=== PATIENT | female | born 1955 | race African-American/Black ===

== ENCOUNTER 2019-04-04 10:17 | Inpatient (IN) | payer SELFPAY ==
[2019-04-04 11:01] LABS: #Eosinphils 0.2 thou/uL (0.0-0.7); #Lymphocytes 2.2 thou/uL (1.20-3.40); #Monocytes 0.6 thou/uL (0.11-0.59); #Neutrophils 5.6 thou/uL (1.40-6.50); %Basophils 0.3 % (0.0-1.0); %Eosinophils 2.2 % (0.0-10.0); %Lymphocytes 26.2 % (21.0-51.0); %Monocytes 6.6 % (0.0-10.0); %Neutrophils 64.8 % (42.0-75.0); Mean Corpuscular HGB CONC 33.2 g/dL (32.0-36.0); Mean Corpuscular Hemoglobin 29.2 pg (27.0-31.0); Mean Platelet Volume 9.6 fL (7.4-10.4); Platelet Count 195 thou/uL (130-400); RBC Distribution Width 13.9 % (11.5-14.5); Red Blood Cell (RBC) Count 4.46 mill/uL (4.20-5.40); White Blood Cell (WBC) Count 8.6 thou/uL (4.8-10.8)
--- NOTE | 2019-04-04 11:05 | RAD ---
Portable frontal chest radiograph: 04/04/2019 COMPARISON: None HISTORY: Hypertension FINDINGS: There is prominence of the aortic arch and mild pulmonary vascular congestion with no pneum othorax, pleural fluid, focal consolidation, or alveolar edema. IMPRESSION: No focal consolidation or alveolar edema.
[2019-04-04 11:19] LABS: ALT (SGPT) 21 U/L (8-55); AST (SGOT) 25 U/L (5-34); Alkaline Phosphatase 118 U/L (40-150); Anion Gap 14 mmol/L (10-20); BUN (Urea Nitrogen) 20 mg/dL (9.8-20.1); Bilirubin, Total 0.9 mg/dL (0.2-1.2); CK (CPK) 68 U/L (29-168); Calc. Creatinine Clearance 0 mL/min (70-130); Calcium 9.6 mg/dL (7.8-10.44); Carbon Dioxide 25 mmol/L (23-31); Chloride 100 mmol/L (98-107); Estimated GFR-MDRD 42; Globulin 3.1 g/dL (2.4-3.5); Glucose 116 mg/dL (80-115); Potassium 3.7 mmol/L (3.5-5.1); Protein, Total 7.1 g/dL (6.0-8.3); Sodium 135 mmol/L (136-145)
[2019-04-04 11:40] LABS: CKMB 2.6 ng/mL (0-6.6)
[2019-04-04] MEDS ORDERED: Labetalol HCl 100 MG/20 ML VIAL ONE (11:51)
--- NOTE | 2019-04-04 11:52 | CT ---
Exam: Brain CT without IV contrast: HISTORY: Weakness, fall, injury, malaise FINDINGS: No focal mass or midline shift. No intra or extra-axial hemorrhage. 0.9 cm diameter low-attenuation f ocus in the right basal ganglia possibly a focal area of chronic white matter ischemic changes versus subacute lacunar infarct. There are some patchy centrum semiovale and periventricular lucencie s favored to be chronic white matter ischemic change. Right maxillary sinus mucosal disease with air-fluid level evidence for sinusitis. IMPRESSION: No mass or acute hemorrhage. Evidence for bilateral chronic white matter ischemic changes. 0.9 cm low-attenuation focus in the right basal ganglia possibly subacute infarct versus chronic whit e matter ischemic focal disease. Right maxillary sinus mucosal disease and air-fluid level.
--- NOTE | 2019-04-04 12:01 | CT ---
EXAM: Abdomen and pelvic CT scan with contrast: HISTORY: Weakness, fall, malaise COMPARISON: None FINDINGS: The visualized lung bases are clear. Liver: 0.8 cm diameter low attenuation density in the right lobe of the liver, not definitively colton cterize, possibly a cyst or other low attenuation nonenhancing mass. Gallbladder:Unremarkable. Pancreas:Unremarkable Spleen:Unremarkable. Adrenal glands:Unremarkable. Kidneys:No renal calculus or acute obstruction.Evidence for small right renal cortical cyst. No evidence for bowel obstruction. No CT evidence for acute appendicitis. There is a very huge multi lobulated pelvic mass extending well into the abdomen the overall size of which measures approximately 12 x 25 x 23 cm containing multiple focal areas of dystrophic type calcification. I feel that this is a huge fibroid uterus. There is in addition, a fairly densely calc ified mass extending cranially in the left lateral abdomen up into the left upper quadrant. This mass measures approximately 8.8 by 14 cm and probably represents a very large densely calcified subse carmella fibroid. No abscess, adenopathy, or abnormal fluid collection within the abdomen or pelvis. IMPRESSION: Huge multilobulated pelvic mass with dystrophic calcifications evidence for very extensive uterine fi broids. Given huge size of these, the possibility of associated malignant transformation cannot be totally excluded. No evidence for ascites or overt adenopathy. Small low-attenuation indeterminant density in the right lobe of the liver.
[2019-04-04] MEDS ORDERED: ISOVUE-370 76%-LOCM 1 ML ONE (13:02)
--- NOTE | 2019-04-04 13:31 | PDOC.FPRHP ---
- History of Present Illness Chief Complaint: Dizziness, Nausea History of Present Illness: Pt is 63 yo F with history of fibroids who presents with elevated blood pressure , nausea, and dizziness of 2 days. She moved here 2 weeks ago from [place]. She has been staying with son. Yesterday, she started having dizziness and had a fall and hit her head. They checked her BP and it was 203/159. They thought it might be an error, but this today she was still experiencing dizziness, so they rechecked her BP and it was 285/159. Her son and grandson checked it on themselves and found their bp to be normal, so they decided to bring her to the ED. the She also had some difficulty walking and slurred speech. She said she has also been experiencing some fatigue and nausea and has not been eating well the past 2 days. ED Course: In the ED, she received 20 mg IV Labetolol x2. BP was initial 230/120. Her Creatinine was elevated at 1.28. CT Head: Negative. CT Abdomen: Huge multilobulated pelvic mass with dystrophic calcifications evidence for very extensive uterine fibroids. Small density in the right lobe of the liver. - Allergies/Adverse Reactions Allergies Allergy/AdvReac Type Severity Reaction Status Date / Time No Known Allergies Allergy Verified 04/04/19 15:46 - History PMHx: Fibroids PSHx: None FHx: HTN- GM, Mom, Brother, and Sister Social: No smoking, drinking, recreational drugs. - Review of Systems General: reports: fatigue. denies: fever/chills Eyes: denies: vision changes ENT: denies: nasal congestion Respiratory: reports: shortness of breath. denies: cough Cardiovascular: reports: edema. denies: chest pain Gastrointestinal: reports: nausea. denies: vomiting, diarrhea, constipation, abdominal pain Genitourinary: denies: dysuria Skin: denies: rashes Musculoskeletal: denies: pain Neurological: reports: weakness. denies: numbness - Vital signs BP: 233/131 HR: 92 RR: 16 Tmax: 98 Pox: 98% on RA Wt: 76.7 - Physical Exam Constitutional: NAD, awake, alert and oriented HEENT: normocephalic and atraumatic, PERRLA, MMM, oropharynx clear Neck: supple, no LAD Chest: no-tender to palpation Heart: RRR, normal S1/S2, no murmurs/rubs/gallops, pulses present, no edema Lungs: CTAB Abdomen: bowel sounds present -Abdomen: Significant mass in abdomen. Musculoskeletal: normal structure, ROM grossly normal Neurological: no focal deficit, CN II-XII intact Skin: no rash/lesions Heme/Lymphatic: no unusual bruising or bleeding, no LAD Psychiatric: normal mood and affect FMR H&P: Results - Labs Result Diagrams: 04/04/19 10:47 04/04/19 10:47 Lab results: WBC 8.6 thou/uL (4.8-10.8) 04/04/19 10:47 Hgb 13.0 g/dL (12.0-16.0) 04/04/19 10:47 Hct 39.3 % (36.0-47.0) 04/04/19 10:47 MCV 88.0 fL (78.0-98.0) 04/04/19 10:47 Plt Count 195 thou/uL (130-400) 04/04/19 10:47 Neutrophils % 64.8 % (42.0-75.0) 04/04/19 10:47 Sodium 135 mmol/L (136-145) L 04/04/19 10:47 Potassium 3.7 mmol/L (3.5-5.1) 04/04/19 10:47 Chloride 100 mmol/L (98-107) 04/04/19 10:47 Carbon Dioxide 25 mmol/L (23-31) 04/04/19 10:47 BUN 20 mg/dL (9.8-20.1) 04/04/19 10:47 Creatinine 1.28 mg/dL (0.6-1.1) H 04/04/19 10:47 Glucose 116 mg/dL (80-115) H 04/04/19 10:47 Calcium 9.6 mg/dL (7.8-10.44) 04/04/19 10:47 Total Bilirubin 0.9 mg/dL (0.2-1.2) 04/04/19 10:47 AST 25 U/L (5-34) 04/04/19 10:47 ALT 21 U/L (8-55) 04/04/19 10:47 Alkaline Phosphatase 118 U/L (40-150) 04/04/19 10:47 Creatine Kinase 68 U/L (29-168) 04/04/19 10:47 CK-MB (CK-2) 2.6 ng/mL (0-6.6) 04/04/19 10:47 Serum Total Protein 7.1 g/dL (6.0-8.3) 04/04/19 10:47 Albumin 4.0 g/dL (3.4-4.8) 04/04/19 10:47 FMR H&P: A/P - Problem List (1) Hypertensive emergency Current Visit: Yes Status: Acute Code(s): I16.1 - HYPERTENSIVE EMERGENCY (2) Fibroids Current Visit: Yes Status: Acute Code(s): D21.9 - BENIGN NEOPLASM OF CONNECTIVE AND OTHER SOFT TISSUE, UNSP - Plan Pt is 63 yo F with history of fibroids who presents with elevated blood pressure , nausea, and dizziness of 2 days. 1. HTN Urgency BP: 233/131 - CT Head: Neg - ED: Labetalol - HCTZ and Amlodipine -Trop: 0.041, will continue to trend - 1 time dose of Hydralazine given earlier 2. Fibroids CT Abd: Huge multilobulated pelvic mass with dystrophic calcifications evidence for very extensive uterine fibroids. Small density in the right lobe of the liver. - Oupt f/u needed - Consider JEWEL BEARING TURNER consult 3. Elevated Cre: CKD vs DAIN Cre: 1.28 - Most likely due to HTN Urgency - UA ordered - Will monitor Diet: HHLSo DVT Prophylaxis: Lovenox GI Prophylaxis: Pepcid Code Status: Full City Call Dispo: Inpt, blood pressure management and resolution of DAIN/CKD. FMR H&P: Upper Level - Plan Date/Time: 04/04/19 1331 Miguelito Lee DO, have evaluated this patient and agree with findings/plan as outlined by auditor internal resident. Pertinent changes/additions are listed here. Subjective: This is a 63 yo female with no recent medical treatment or evaluation who presents today with a 2 week history of nausea, dizziness, fatigue, and lack of appetite. She is presenting to the ER today because she had an elevated BP of 280s/130s taken at home. She reports checking her BP because of the symptoms above. She also reports knowing that she had a fibroid but not really knowing the significant. She denies any symptoms regarding this. Objective: Vitals BP: 233/121, HR 70, RR 16, SpO2 98% RA, General: NAD HEENT: MMM, NC/AT Cardio: RRR, no murmur Lungs: CTAB Abdomen: Large mass consistent with CT, no ttp Extremities: no swelling Neuro: No deficits or weakness appreciated A/P Hypertensive urgency -Admit to tele -amlodipine and HCTZ, will titrate -Hydralazine PRN -Will monitor for signs of hypertensive emergency DAIN vs CKD, no prior studies -Likely 2/2 elevated BP, will trend with AM BMP Elevated troponin -Trending down, likely from demand Large abdominal mass, thought to be a fibroid -Pt will need inpt vs outpt NYLON WINDER evaluation
[2019-04-04] MEDS ORDERED: Nitroglycerin 2% Ointment 1 INCH/1 GM Packet ONE (13:48)
[2019-04-04] MEDS ORDERED: hydrALAZINE 20 MG/ML VIAL ONE (13:48)
[2019-04-04] MEDS ORDERED: Aspirin Chewable 81 MG TAB ONE (14:17)
[2019-04-04] MEDS ORDERED: Ondansetron PF 4 MG/2 ML Vial IVP PRN (14:41)
[2019-04-04] MEDS ORDERED: Ondansetron ODT 4 MG TAB SL PRN (14:41)
[2019-04-04] MEDS ORDERED: Acetaminophen 325 MG TAB PO PRN (14:41)
[2019-04-04] MEDS ORDERED: hydrALAZINE 20 MG/ML VIAL SLOW IVP SCH (15:30)
[2019-04-04] MEDS ORDERED: Senokot S 8.6-50 MG TAB PO PRN (15:55)
--- NOTE | 2019-04-04 16:46 | HP ---
I have examined the patient and I have discussed the case with Dr. Pablo Padron. HISTORY OF PRESENT ILLNESS: Tiff Officer is a very pleasant 63-year-old black female, who presented to the emergency room early this afternoon. Her friend and caregiver states that she noticed this morning that the patient was complaining of a dull headache and felt "dizzy." She took her blood pressure recorded, it is very high, and brought her to the ER. She states that her friend at all times could move all extremities. She never complained of chest pain or shortness of breath. She was always alert, oriented, and do not demonstrate any evidence of an encephalopathy. As stated above, her only symptom was a slight feeling of dizziness and fatigue. In the ER, she was noted to have a systolic of about 260/130 and was brought in and given some labetalol. By the time I saw the patient, her blood pressure was 220/120. PHYSICAL EXAMINATION: GENERAL: When I examined the patient, she was quietly sitting in bed. She was completely alert, oriented x3, and in absolutely no distress. EAR, NOSE, AND THROAT: No erythema or exudate. NECK: Supple. CARDIAC: Heart rhythm is regular. S4 gallop. No murmur or rub noted. LUNGS: Clear, but diminished. No rales, rhonchi, or wheezes. No distress. ABDOMEN: There is a very large mass in the abdominal region around the umbilicus and distal to the umbilicus, consistent with fibroids of which the patient has a history. EXTREMITIES: The patient moves all extremities with no difficulty. NEUROLOGIC: No focal deficits. DIAGNOSTIC STUDIES: EKG, no acute ischemic changes. Head CT, negative. LABORATORY DATA: Labs are pending. ASSESSMENT: Hypertensive urgency. PLAN: Admit. Aggressive p.o. medications and close followup in the clinic. Job ID: [id number]
[2019-04-04] MEDS ORDERED: Hydrochlorothiazide 25 MG TAB PO SCH ×2 (18:58→21:00)
[2019-04-04] MEDS ORDERED: hydrALAZINE 10 MG TAB PO SCH (21:30)
[2019-04-05] MEDS ORDERED: Labetalol HCl 100 MG/20 ML VIAL SLOW IVP SCH (02:45)
--- NOTE | 2019-04-05 05:48 | PDOC.FM ---
- Subjective Subjective: Patient is doing well this morning. She states that she still feels a little dizzy and unsteady. She denies any new symptoms. She stated that she thought her speech sounded slurred, but it is the same as yesterday. - Objective MAR Reviewed: Yes Vital Signs & Weight: Vital Signs (12 hours) Temp Pulse Resp BP BP Pulse Ox 04/05/19 03:38 76 209/91 H 04/05/19 03:20 98.1 F 77 20 231/109 H 96 04/04/19 23:20 98.1 F 75 16 195/93 H 97 04/04/19 22:18 71 201/98 H 04/04/19 20:15 93 L Weight Weight 68.266 kg I&O: 04/03/19 04/04/19 04/05/19 06:59 06:59 06:59 Intake Total 240 Balance 240 Result Diagrams: 04/05/19 05:07 04/05/19 05:07 Phys Exam - Physical Examination Constitutional: NAD HEENT: PERRLA, moist MMs, sclera anicteric Neck: supple, full ROM Respiratory: no wheezing, no rales, no rhonchi, clear to auscultation bilateral Cardiovascular: RRR, no significant murmur, no rub Gastrointestinal: soft, non-tender, positive bowel sounds large, firm mass palpable throughout abdomen. Musculoskeletal: no edema, pulses present Neurological: non-focal, normal sensation, moves all 4 limbs CN II-XII intact, 5/5 strength in upper and lower extremities, nl sensation Psychiatric: normal affect, A&O x 3 Skin: no rash, normal turgor Dx/Plan - Plan Plan: Pt is 63 yo F with history of fibroids who presents with elevated blood pressure , nausea, and dizziness of 2 days. HTN Urgency BP: 233/131 on presentation. Overnight 200/100s HCTZ 25BID and Amlodipine 5po, Labetolol 10 x 1 and Hydralazine 10po and 10IV. Will start Lisinopril 10 today. Trop: 0.041, will continue to trend Cr 1.28 > 1.[address] Abd: Huge multilobulated pelvic mass with dystrophic calcifications evidence for very extensive uterine fibroids. Small density in the right lobe of the liver. Oupt f/u needed, consider ADULT PSYCHIATRIST consult outpatient Elevated Cre: CKD vs DAIN Cre: 1.28 > 1.43 Will trend. Diet: HHLSo DVT: Lovenox GI Prophylaxis: Pepcid Code Status: Full Dispo: Stable, inpatient Addendum - Attending - Attending Attestation Date/Time: 04/05/19 2625 I personally evaluated the patient and discussed the management with Dr. Traylor. I agree with the History, Examination, Assessment and Plan documented above with any addition or exceptions noted below. Pt symptomatic with blood pressures in the 230's/110's. Will transfer to icu for cardene drip. She is complaining of dizziness, jaw pain. Trops are indeterminate. Will trend this. Pt's creatinine elevated, dain vs ckd. Getting urine studies. Will get MRI brain as well.
[2019-04-05 05:57] LABS: #Basophils 0.1 thou/uL (0.0-0.2); #Eosinphils 0.4 thou/uL (0.0-0.7); #Lymphocytes 2.2 thou/uL (1.20-3.40); #Monocytes 0.7 thou/uL (0.11-0.59); #Neutrophils 6.4 thou/uL (1.40-6.50); %Basophils 0.6 % (0.0-1.0); %Eosinophils 3.8 % (0.0-10.0); %Lymphocytes 22.4 % (21.0-51.0); %Monocytes 6.9 % (0.0-10.0); %Neutrophils 66.3 % (42.0-75.0); Hemoglobin 12.5 g/dL (12.0-16.0); Mean Corpuscular HGB CONC 33.5 g/dL (32.0-36.0); Mean Corpuscular Hemoglobin 29.6 pg (27.0-31.0); Mean Corpuscular Volume 88.3 fL (78.0-98.0); Mean Platelet Volume 9.5 fL (7.4-10.4); Platelet Count 196 thou/uL (130-400); RBC Distribution Width 13.9 % (11.5-14.5); Red Blood Cell (RBC) Count 4.22 mill/uL (4.20-5.40); White Blood Cell (WBC) Count 9.7 thou/uL (4.8-10.8)
[2019-04-05 06:16] LABS: Bacteria/HPF None Seen HPF (None Seen); Bilirubin Negative (Negative); Blood, Urine Negative (Negative); Clarity Clear (Clear); Glucose, Urine (Dipstick) Normal (Negative); Leukocyte 75 Leu/uL (Negative); Nitrite Negative (Negative); Protein, Urine (Dipstick) 100 mg/dL (Neg-Trace); RBC/HPF 0-3 HPF (0-3); Squamous Epithelial 0-3 HPF (0-3); Urobilinogen Normal mg/dL (Less than 2)
[2019-04-05 06:16] LABS: Anion Gap 14 mmol/L (10-20); BUN (Urea Nitrogen) 21 mg/dL (9.8-20.1); Calc. Creatinine Clearance 43 mL/min (70-130); Calcium 9.3 mg/dL (7.8-10.44); Carbon Dioxide 25 mmol/L (23-31); Chloride 100 mmol/L (98-107); Estimated GFR-MDRD 45; Glucose 103 mg/dL (80-115); Sodium 136 mmol/L (136-145)
[2019-04-05 06:24] LABS: Potassium 2.9 mmol/L (3.5-5.1)
[2019-04-05] MEDS ORDERED: Potassium Chloride 20 MEQ TAB PO SCH (07:00)
[2019-04-05] MEDS: Hydrochlorothiazide 25 MG TAB PO SCH ×2 (07:15→20:34)
[2019-04-05] MEDS: Lisinopril 10 MG TAB PO SCH (07:15)
[2019-04-05] MEDS: Amlodipine 10 MG TAB PO SCH (07:16)
[2019-04-05] MEDS: Famotidine 20 MG TAB PO SCH (07:16)
--- NOTE | 2019-04-05 08:40 | CON ---
DATE OF CONSULTATION: 04/04/2019 CHIEF COMPLAINT: Pelvic mass. HISTORY OF PRESENT ILLNESS: The patient is a 63-year-old female, presenting to the emergency room with dizziness and nausea and was noted to be in hypertensive emergency. The patient was admitted for treatment. The patient has history of uterine fibroid in the last 17 years. We were consulted for evaluation of this mass. By CT scan, the mass measured was multilobular and measured 25 degrees in its largest dimension. On evaluation of the patient, the patient reports that she has known about these fibroids for the last 17 years. She does not experience any pain or discomfort from them. The patient has not seen a provider in many, many years. The patient does report that she has applied for Medicare, which she becomes eligible for in a couple of months. We have recommended to Ms. Officer that prior to addressing these fibroids, which do need to be removed at the patient's earliest convenience, that the patient get her blood pressures under control as they are severely elevated. PAST MEDICAL HISTORY: Negative apart from uterine fibroids. PAST SURGICAL HISTORY: Negative. FAMILY HISTORY: Hypertension. SOCIAL HISTORY: Denies drug, alcohol, or tobacco use. REVIEW OF SYSTEMS: Reports fatigue and dizziness and weakness. Denies chest pain, abdominal pain, vaginal bleeding, urinary urgency, fecal incontinence, or other mass effect that she is aware of. She denies any numbness or localized weakness. PHYSICAL EXAMINATION: VITAL SIGNS: Around the time of our evaluation, blood pressure is 215/106, temperature 97.7, pulse is 71, respiratory rate is 16, and saturating 98% on room air. GENERAL: She appeared to be in no acute distress. She is alert and oriented, cooperative and pleasant to interact with. HEENT: Head is normocephalic, atraumatic. ABDOMEN: Protuberant. It is nontender to palpation. She has a firm irregularly shaped mass very palpable through the abdominal wall. DIAGNOSTIC DATA: CT scan of the abdomen and pelvis shows a multilobular pelvic mass with dystrophic calcifications. Evidence of extensive uterine fibroids. Given the size of these fibroids, Radiology cannot rule out any associated malignant transformation. ASSESSMENT AND PLAN: The patient is a 63-year-old female with known large uterine fibroids and a newly diagnosed of uncontrolled hypertension in a hypertensive emergency. The patient is being managed by Family Medicine for her blood pressure. Our recommendations at this time are to get her blood pressures under control, evaluate for any comorbidities associated with this likely longstanding condition. Once this is uncontrolled, it had been fully evaluated as necessary. The patient should follow up with [facility] for evaluation of these uterine fibroids in an outpatient setting. We will be sending a referral over, further documentation also will be including in her discharge paperwork instructions to follow up at [facility] once her blood pressures are under control. At this point, what seems to be the best scenario for her is to have evaluation for a planned surgery within her Medicare window to be able to provide much better financial support than she currently has. Obviously, if her symptoms were to acutely change and be uncontrollable, she would require a hysterectomy prior to that point. Job ID: [id number]
[2019-04-05] MEDS ORDERED: Amlodipine 5 MG TAB PO SCH (09:00)
[2019-04-05] MEDS ORDERED: Enoxaparin Sodium 40 MG/0.4 ML SYRINGE SC SCH (09:00)
[2019-04-05] MEDS: hydrALAZINE 20 MG/ML VIAL SLOW IVP PRN (09:06)
[2019-04-05 09:22] LABS: Creatinine, Urine 75.62 mg/dL (47-110)
[2019-04-05] MEDS: niCARdipine 25 MG in Sodium Chloride 0.9% 250 ML 250 ML IVPB SCH ×2 (10:40→14:20)
[2019-04-05 13:04] LABS: Troponin I 0.198 ng/mL (< 0.028)
--- NOTE | 2019-04-05 14:02 | CON ---
DATE OF CONSULTATION: 04/05/2019 CONSULTING PHYSICIAN: Family Medicine Residency Service. REASON FOR CONSULTATION: Hypertension out of control. HISTORY OF PRESENT ILLNESS: The patient is a 63-year-old Jose Miguel female, who came to the emergency room last night saying that she had tripped several times because she was dizzy. She was found to have a profoundly elevated blood pressure, which apparently could not be controlled with medications on the floor. She was subsequent transferred to the CCU for nicardipine drip. She is scheduled to have an MRI later today. Part of her workup consisted of CT of the abdomen, which showed a multilobulated pelvic mass thought secondary to extensive uterine fibroids. PAST MEDICAL HISTORY: Fibroids. PAST SURGICAL HISTORY: None. FAMILY MEDICAL HISTORY: Remarkable for hypertension. SOCIAL HISTORY: Nondrinker. Nonsmoker. Does not use illicit drugs. ALLERGIES: NONE. MEDICATIONS: Prior to admission, none. REVIEW OF SYSTEMS: Twelve-point review of systems negative except for the dizziness. PHYSICAL EXAMINATION: VITAL SIGNS: Temperature 98.1; pulse 83; and blood pressure 168/82, currently on a nicardipine drip at 7.5 mg/hour. GENERAL: She is awake, alert, in no distress. HEENT: Pupils react. Sclerae are anicteric. Oropharynx clear. NECK: No adenopathy or JVD. LUNGS: Clear to auscultation without wheezing. CARDIAC: S1 and S2 regular with 2/6 systolic murmur. ABDOMEN: She has density below her liver, also density below her spleen. EXTREMITIES: No clubbing, cyanosis, or edema. LABORATORY DATA: Sodium 136, potassium 2.9, chloride 100, CO2 of 25, BUN 21, creatinine 1.4, and glucose 103. White blood cell count 9.7, hematocrit 37.3, and platelet count 196. ASSESSMENT: 1. Malignant hypertension. 2. Dizziness. PLAN: 1. She is undergoing an MRI to further workup for the possibility of stroke. 2. She has been seen by Gynecology, who has recommend an outpatient workup for the pelvic mass. One thing that should be kept in mind is the possibility of extrinsic renal artery stenosis leading to the hypertension recommendation. Initiate oral antihypertensives. 3. Consider MRA of the renal veins if unable to improve blood pressure with antihypertensives. 4. Await results of the MRI. Job ID: [id number]
--- NOTE | 2019-04-05 14:32 | MRI ---
BRAIN MRI WITHOUT CONTRAST: DATE: 04/05/2019. COMPARISON: None. HISTORY: Nausea, stumbling and weakness, frequent falls. TECHNIQUE: Multiplanar, multisequence MR imaging of the brain obtained without contrast. FINDINGS: The axial diffusion weighted imaging demonstrates no evidence for acute infarction. Axial gradient echo imaging demonstrates no evidence for intracranial hemorrhage. There is mucosal thickening involving the frontal sinus on the right. There is maxillary sinus and e thmoid air cell mucosal thickening on the right as well. Arterial flow voids at the axial level of the skull base appear grossly unremarkable on the T2 weight ed imaging. There is extensive abnormal increased T2 and FLAIR signal noted throughout the medulla, mckenzie, and mid brain as well as involving the central aspect of the bilateral cerebellar hemispheres. There is ext ensive abnormal confluent increased T2 and FLAIR signal also seen within the basal ganglia, the thala mi, and throughout the periventricular, deep, and subcortical white matter. Motion artifact limits d etailed assessment. Regional bone marrow signal intensity appears within normal limits. IMPRESSION: There is extensive confluent abnormal increased T2 and FLAIR signal suggesting edema involving the de ep periventricular and subcortical white matter bilaterally as well as the basal ganglia, thalami, br ainstem, and cerebellar hemispheres. There is no associated hemorrhage or acute infarction. No comparison imaging is available. This could be related to demyelinating disease(multiple sclerosis), acute metabolic disorder, or an i nflammatory/infectious process/encephalitis. Clinical correlate is essential. Short-term followup i maging is advised. Postcontrast imaging recommended at this time. CODE T POS: OFF
--- NOTE | 2019-04-05 20:24 | CT ---
CT BRAIN WITHOUT CONTRAST: History: Fall, headache. FINDINGS/IMPRESSION: Comparison made with exam of 04-04-19. No significant interval change is seen since the previous day's exam. POS: BENYH
[2019-04-05] MEDS: niCARdipine 50 MG in Sodium Chloride 0.9% 250 ML 230 ML IVPB SCH (21:33)
[2019-04-06] MEDS: niCARdipine 50 MG in Sodium Chloride 0.9% 250 ML 230 ML IVPB SCH ×2 (02:04→10:33)
--- NOTE | 2019-04-06 05:33 | PDOC.FM ---
- Subjective Subjective: Patient was resting well this morning, denies chest pain and shortness of breath. She states that last night she got up to go to the bathroom, felt unsteady and fell, hitting the back of her head. She doesn't know why she fell, just that she felt unsteady. - Objective MAR Reviewed: Yes Vital Signs & Weight: Vital Signs (12 hours) Temp Pulse Ox 04/05/19 23:00 98.1 F 04/05/19 19:38 98 04/05/19 19:00 97.8 F Weight Admit Weight 68.266 kg Weight 68.266 kg Most Recent Monitor Data Heart Rate from ECG 80 NIBP 151/68 NIBP BP-Mean 95 Respiration from ECG 23 SpO2 93 I&O: 04/04/19 04/05/19 04/06/19 06:59 06:59 06:59 Intake Total 240 1554 Output Total 1950 Balance 240 -396 Result Diagrams: 04/05/19 05:07 04/06/19 05:29 Additional Labs: Laboratory Tests 04/04/19 04/04/19 04/05/19 13:35 17:22 12:31 Troponin I 0.036 H 0.033 H 0.198 H 04/06/19 05:29 Troponin I 0.634 H* Phys Exam - Physical Examination Constitutional: NAD HEENT: PERRLA, moist MMs, sclera anicteric Neck: no nodes, supple, full ROM Respiratory: no wheezing, no rales, no rhonchi, clear to auscultation bilateral Cardiovascular: RRR, no rub systolic 2/6 murmur. Gastrointestinal: soft, non-tender, positive bowel sounds palpable uterine fibroid Musculoskeletal: no edema, pulses present Neurological: non-focal, moves all 4 limbs Psychiatric: normal affect, A&O x 3 Skin: no rash, normal turgor Dx/Plan - Plan Plan: Pt is 63 yo F with history of fibroids who presents with elevated blood pressure , nausea, and dizziness of 2 days. HTN Emergency BP: 233/131 on presentation. Overnight mostly 150s/70s. On Cardene drip. Will attempt to titrate down the drip today and transition to po medications only. HCTZ 25BID and Amlodipine 10po, Lisinopril 10mg. Trop: 0.198 > 0.634 >0.725. Started on Therapeutic Lovenox and Consulted Cardiology. Cr 1.28 > 1.43 > 1.[address] Abd: Huge multilobulated pelvic mass with dystrophic calcifications evidence for very extensive uterine fibroids. Small density in the right lobe of the liver. Oupt f/u needed, consider AGRIBUSINESS PROFESSOR consult outpatient Elevated Cre: CKD vs DAIN Cre: 1.28 > 1.43 > 1.30 Will trend. Fall Patient fell overnight Repeat CT scan showed no changes. Will continue to monitor closely Diet: HHLSo DVT: Lovenox, therapeutic GI Prophylaxis: Pepcid Code Status: Full Dispo: Stable, inpatient Addendum - Attending - Attending Attestation Date/Time: 04/06/19 2168 I personally evaluated the patient and discussed the management with Dr. Traylor. I agree with the History, Examination, Assessment and Plan documented above with any addition or exceptions noted below. BP's are better with cardene drip though not able to wean so far today. Troponins are consistent with nstemi. She has been given therapeutic lovenox. Cardiology is consulted and she is getting an echo this morning. Will await results. She has also received po meds and we will try to wean drip.
[2019-04-06 05:58] LABS: Anion Gap 11 mmol/L (10-20); BUN (Urea Nitrogen) 17 mg/dL (9.8-20.1); Calc. Creatinine Clearance 47 mL/min (70-130); Calcium 9.4 mg/dL (7.8-10.44); Carbon Dioxide 25 mmol/L (23-31); Chloride 103 mmol/L (98-107); Estimated GFR-MDRD 50; Glucose 106 mg/dL (80-115); Potassium 3.2 mmol/L (3.5-5.1); Sodium 136 mmol/L (136-145)
[2019-04-06 06:05] LABS: Troponin I 0.634 ng/mL (< 0.028)
[2019-04-06] MEDS ORDERED: Enoxaparin Sodium 30 MG/0.3 ML SYRINGE SC SCH (06:15)
[2019-04-06] MEDS: Hydrochlorothiazide 25 MG TAB PO SCH ×2 (08:12→20:09)
[2019-04-06] MEDS: Amlodipine 10 MG TAB PO SCH (08:12)
[2019-04-06] MEDS: Lisinopril 10 MG TAB PO SCH (08:13)
[2019-04-06] MEDS: Famotidine 20 MG TAB PO SCH (08:13)
[2019-04-06] MEDS: Enoxaparin Sodium 80 MG/0.8 ML SYRINGE SC SCH ×2 (08:14→20:09)
--- NOTE | 2019-04-06 08:29 | PRG ---
DATE OF SERVICE: 04/06/2019 SUBJECTIVE: The patient feels better. She is sitting up, has no complaints. She remains on a nicardipine drip at 7.5 mg/hour. OBJECTIVE: VITAL SIGNS: On exam, her temperature is 98, pulse 77, blood pressure 153/67, and O2 saturation 93%. Intake for 24 hours 1554, output 1950. HEENT: Unremarkable. NECK: No adenopathy. No JVD. CHEST: Clear to auscultation. CARDIAC: S1 and S2, regular. ABDOMEN: Soft. EXTREMITIES: No edema. DIAGNOSTIC DATA: MRI did show some uptake consistent with some type of inflammatory process. I think this is probably hypertensive encephalopathy. ASSESSMENT: 1. Hypertensive encephalopathy. 2. Hypertensive emergency. PLAN: 1. Continue nicardipine drip with slow correction of her blood pressure. There is no urgency in getting her down to a normal level given the findings on her MRI. 2. She is back on oral medications. 3. I would leave in the ICU today on the nicardipine drip. 4. Monitor laboratory data. Job ID: [id number]
[2019-04-06] MEDS ORDERED: Enoxaparin Sodium 80 MG/0.8 ML SYRINGE SC SCH (09:00)
[2019-04-06 09:53] LABS: Troponin I 0.725 ng/mL (< 0.028)
[2019-04-06] MEDS ORDERED: Metoprolol Tartrate 25 MG TAB PO SCH (11:30)
[2019-04-06] MEDS ORDERED: Aspirin 81 mg Enteric Coated Tablet PO SCH (11:30)
[2019-04-06 13:55] LABS: Critical Call Chem Troponin I RESULT DECREASING; Troponin I 0.595 ng/mL (< 0.028)
--- NOTE | 2019-04-06 14:44 | CON ---
DATE OF CONSULTATION: HISTORY OF PRESENT ILLNESS: Tiff Officer is a 63-year-old black female originally from [place], who was admitted with dizziness, weakness, and elevated blood pressure. She apparently just moved here 2 weeks ago from [place] and became very dizzy. She had a fall out of bed and her family had picked her up and put her back into bed. Blood pressure was 203/159. She eventually was brought the emergency room. Currently, she is on IV Cardene for control of her blood pressure. She also has been placed on amlodipine 10 mg daily, hydrochlorothiazide 25 b.i.d., and lisinopril 10 daily. She denies any chest, arm, neck, or jaw discomfort. She denies any shortness of breath, PND, orthopnea, or leg edema. She has never been told if she had any type of cardiac problem in the past. PAST MEDICAL HISTORY: Remarkable for uterine fibroids. PAST SURGICAL HISTORY: None. MEDICATIONS: None. ALLERGIES: NONE. SOCIAL HISTORY: She has not smoked for several weeks, but used to smoke 4 to 6 cigarettes per day. She does not drink. FAMILY HISTORY: Negative for coronary artery disease. REVIEW OF SYSTEMS: Otherwise unremarkable. PHYSICAL EXAMINATION: VITAL SIGNS: Blood pressure of 150/69, pulse of 80, the highest blood pressure that I can find in the emergency room was 234/130. HEENT: PERRL. NECK: Supple. CHEST: Clear. CARDIAC: S1 and S2 normal without any S3 or S4. There is a 2/6 systolic ejection murmur heard throughout the precordium. Carotid upstrokes normal without bruits. ABDOMEN: Normal bowel sounds without tenderness or organomegaly or masses. EXTREMITIES: Revealed no clubbing, cyanosis, or edema. NEUROLOGIC: Grossly intact. SKIN: Warm and dry. IMAGING STUDIES: EKG reveals normal sinus rhythm with voltage criteria for left ventricular hypertrophy. Nonspecific T-wave changes. Echocardiogram revealed moderate concentric left ventricular hypertrophy with ejection fraction of 60% to 65%, mitral annular calcification, mild mitral regurgitation, mild left atrial enlargement, aortic valvular fibrosis, and mild tricuspid regurgitation. LABORATORY DATA: CBC is unremarkable. Sodium 136, potassium 3.2, chloride 103, carbon dioxide 25, BUN 17, creatinine 1.30. Troponin I up to 0.725. IMAGING STUDIES: Head CT revealed chronic white matter ischemic changes and low-attenuation focus in the right basal ganglia. Abdominal/pelvis CT revealed uterine fibroids. Brain MRI suggested edema involving the deep periventricular and subcortical white matter. Troponin I is up to 0.725. IMPRESSION: 1. Hypertensive emergency with some degree of hypertensive encephalopathy with abnormal MRI findings. 2. Hypertension, treated. 3. Smoker until 2 weeks ago. 4. Uterine fibroids. 5. Non-STEMI type 2. 6. Chronic kidney disease. RECOMMENDATIONS: The patient denies any chest discomfort and elevated troponin I is probably due to demand ischemia. However, I would place her on aspirin 81 daily. Also, with left ventricular hypertrophy on EKG as well as echocardiogram, I would add a beta-esther for better control of her blood pressure. Once the blood pressure is better controlled, consideration could be given to Cardiolite scan. Job ID: [id number] [facility]
[2019-04-06 15:35] LABS: Troponin I 0.612 ng/mL (< 0.028)
[2019-04-06] MEDS: Metoprolol Tartrate 50 MG TAB PO SCH (20:09)
[2019-04-07] MEDS: hydrALAZINE 20 MG/ML VIAL SLOW IVP PRN ×3 (00:51→23:18)
[2019-04-07] MEDS ORDERED: Potassium Chloride 20 MEQ TAB PO SCH (05:45)
--- NOTE | 2019-04-07 05:48 | PDOC.FM ---
- Subjective Subjective: Patient is doing well this morning. She denies chest pain, shortness of breath and abdominal pain. However overnight her blood pressures remained elevated without the IV drip. Her nurse states that she still seems confused and weak. - Objective Vital Signs & Weight: Vital Signs (12 hours) Temp Pulse BP Pulse Ox 04/07/19 05:13 66 190/98 H 04/07/19 04:00 97.9 F 04/07/19 00:51 66 190/101 H 04/07/19 00:00 97.7 F 04/06/19 20:00 97.8 F 95 Weight Admit Weight 68.266 kg Weight 64.4 kg Most Recent Monitor Data Heart Rate from ECG 66 NIBP 190/98 NIBP BP-Mean 128 Respiration from ECG 16 SpO2 96 I&O: 04/05/19 04/06/19 04/07/19 06:59 06:59 06:59 Intake Total 240 1554 1990 Output Total 1950 2300 Balance 240 -955 -219 Result Diagrams: 04/05/19 05:07 04/07/19 06:33 Phys Exam - Physical Examination Constitutional: NAD HEENT: moist MMs, sclera anicteric Neck: supple, full ROM Respiratory: no wheezing, no rales, no rhonchi, clear to auscultation bilateral Cardiovascular: RRR, no rub slight systolic murmur Gastrointestinal: soft, non-tender, positive bowel sounds large uterine fibroid palpated Musculoskeletal: no edema, pulses present Neurological: non-focal, moves all 4 limbs Lymphatic: no nodes Psychiatric: normal affect, A&O x 3 Skin: no rash, normal turgor Dx/Plan - Plan Plan: Pt is 63 yo F with history of fibroids who presents with elevated blood pressure , nausea, and dizziness of 2 days. HTN Emergency BP: 233/131 on presentation. Overnight 160-190/70-100. Cardene drip turned off sometime yesterday afternoon, nurse was unaware of what time. Blood pressures were elevated overnight. 2x Hydralazine prn for SBP > 180. I instructed the nurse this morning for SBP > 190 to turn the drip back on. HCTZ 25BID and Amlodipine 10po, Lisinopril 10mg, Metoprolol 50mg BID. Started on Therapeutic Lovenox and Consulted Cardiology - their opinion is likely demand ischemia. Started B-Flor and ASA. ECHO: LVH, EF 60-65%, mild dil L atrium, mitral annular calcification, mild mitral regurg, sclerotic aortic valve, mild tricuspid regurg Will likely obtain MRA of the abdomen this morning. Fibroids CT Abd: Huge multilobulated pelvic mass with dystrophic calcifications evidence for very extensive uterine fibroids. Small density in the right lobe of the liver. Oupt f/u needed, consider BABCOCK TESTER consult outpatient Will consider MRA of abdomen today to consider the possibility of the fibroid causing compression of the renal vasculature which might be the source of the HTN. Elevated Cre: CKD vs DAIN Cre: 1.28 > 1.43 > 1.30 > 1.36 Will trend. Diet: HHLSo DVT: Lovenox, therapeutic GI Prophylaxis: Pepcid Code Status: Full Dispo: Stable, inpatient Addendum - Attending - Attending Attestation Date/Time: 04/07/19 5307 I personally evaluated the patient and discussed the management with Dr. Traylor. I agree with the History, Examination, Assessment and Plan documented above with any addition or exceptions noted below. The patient has been on and off the cardene drip. Metoprolol is increasing to 100 mg bid. Getting MRA abdomen to assess for renal artery compression from the large fibroid. Echo results reviewed with preserved ejection fraction.
[2019-04-07 07:26] LABS: Anion Gap 14 mmol/L (10-20); BUN (Urea Nitrogen) 18 mg/dL (9.8-20.1); Calc. Creatinine Clearance 42 mL/min (70-130); Calcium 10.4 mg/dL (7.8-10.44); Carbon Dioxide 24 mmol/L (23-31); Chloride 103 mmol/L (98-107); Cholesterol 245 mg/dl (< 200 Desired); Estimated GFR-MDRD 47; Glucose 103 mg/dL (80-115); HDL Cholesterol 41 mg/dL (>60 Neg Risk); LDL Cholesterol, Calculated 171 mg/dL; Potassium 3.3 mmol/L (3.5-5.1); Sodium 138 mmol/L (136-145); Triglycerides 165 mg/dL (Less than 150)
[2019-04-07] MEDS: Enoxaparin Sodium 80 MG/0.8 ML SYRINGE SC SCH ×2 (08:24→20:17)
[2019-04-07] MEDS: Hydrochlorothiazide 25 MG TAB PO SCH ×2 (08:25→20:17)
[2019-04-07] MEDS: Amlodipine 10 MG TAB PO SCH (08:25)
[2019-04-07] MEDS: Metoprolol Tartrate 50 MG TAB PO SCH (08:25)
[2019-04-07] MEDS: Famotidine 20 MG TAB PO SCH (08:26)
[2019-04-07] MEDS: Lisinopril 10 MG TAB PO SCH (08:26)
[2019-04-07] MEDS: Aspirin 81 mg Enteric Coated Tablet PO SCH (08:26)
[2019-04-07] MEDS ORDERED: Senokot S 8.6-50 MG TAB PO SCH (08:30)
--- NOTE | 2019-04-07 08:40 | PRG ---
DATE OF SERVICE: 04/07/2019 SUBJECTIVE: The patient is doing reasonably well this morning. She is currently off the nicardipine drip. OBJECTIVE: VITAL SIGNS: On exam, temp 97.9, pulse 79, blood pressure 170/86, O2 saturation 95%. Intake for 24 hours 2050, output 2300. HEENT: Unremarkable. NECK: No adenopathy or JVD. CHEST: Clear to auscultation. CARDIAC: S1, S2. Regular. ABDOMEN: Distended. Masses noted. EXTREMITIES: No edema. LABORATORY DATA: Sodium 138, potassium 3.3, chloride 103, CO2 of 24, BUN 18, creatinine 1.3, and glucose 103. ASSESSMENT: 1. Hypertensive emergency. 2. Resolving hypertensive encephalopathy - mental status seems back to normal. 3. Uterine fibroids. PLAN: From my standpoint, she can be transferred out to the telemetry floor. Continue blood pressure management per Cardiology. Continue workup for fibroids per Family Medicine-Director Of Quality. No further recommendations at this time. Job ID: [id number]
[2019-04-07] MEDS: Metoprolol Tartrate 100 MG TAB PO SCH ×2 (09:19→20:17)
--- NOTE | 2019-04-07 11:43 | MRI ---
EXAM: MRA abdomen without and with contrast HISTORY: Renal artery stenosis COMPARISON: CT abdomen/pelvis 04/04/2019 TECHNIQUE: An MRA of the abdomen was performed without and with IV contrast. 3-D rotational MIP refor mats were performed. FINDINGS: Abdominal aorta: Normal in caliber. No aneurysm or dissection. Celiac trunk: Patent without significant narrowing SMA: Patent without significant narrowing YADIRA: Patent without significant narrowing Right renal artery: Single renal artery without significant narrowing Left renal artery: Single renal artery without significant narrowing Common iliac arteries and visualized internal and external iliac arteries: Patent without significant narrowing Other visualized intra-abdominal organs: A large mass is seen in the lower abdomen. IMPRESSION: No significant MRA abnormality of the abdomen
[2019-04-07] MEDS ORDERED: Gadobenate Dimeglumine 529 MG/1 ML (20ML VIAL) ONE (16:50)
[2019-04-07] MEDS: Atorvastatin Calcium 40 MG TAB PO SCH (20:18)
--- NOTE | 2019-04-08 05:18 | PDOC.FM ---
- Subjective Subjective: Patient was sleeping comfortably this morning. Her nurse reports that she is still incontinent. Nurse also reports that the patient's sister stated that Ms. Officer was more intelligible yesterday and making more sense. - Objective MAR Reviewed: Yes Vital Signs & Weight: Vital Signs (12 hours) Temp Pulse BP Pulse Ox 04/08/19 00:00 98.6 F 04/07/19 23:18 64 182/99 H 04/07/19 20:00 99.2 F 04/07/19 19:04 95 Weight Admit Weight 68.266 kg Weight 64.4 kg Most Recent Monitor Data Heart Rate from ECG 65 NIBP 179/92 NIBP BP-Mean 121 Respiration from ECG 19 SpO2 96 I&O: 04/06/19 04/07/19 04/08/19 06:59 06:59 06:59 Intake Total 1554 2050 830 Output Total 1950 2300 1300 Balance -775 -995 -853 Result Diagrams: 04/05/19 05:07 04/08/19 07:21 Phys Exam - Physical Examination Constitutional: NAD HEENT: moist MMs, sclera anicteric Neck: supple, full ROM Respiratory: no wheezing, no rales, no rhonchi, clear to auscultation bilateral Cardiovascular: RRR, no significant murmur, no rub Gastrointestinal: soft, non-tender, no distention, positive bowel sounds Musculoskeletal: no edema, pulses present Neurological: non-focal, moves all 4 limbs Deviation from normal: Unable to assess, unsure of patient's baseline. Skin: no rash, cap refill <2 seconds Dx/Plan - Plan Plan: Pt is 63 yo F with history of fibroids who presents with elevated blood pressure , nausea, and dizziness of 2 days. HTN Emergency BP: 233/131 on presentation. Overnight 160-180/70-100. Hydralazine prn for SBP > 180. Required 2x overnight. HCTZ 25BID and Amlodipine 10po, (increase to) Lisinopril 20mg, Metoprolol 100mg BID. Started on Therapeutic Lovenox and Consulted Cardiology - their opinion is likely demand ischemia. Started B-Flor and ASA. Received therapeutic lovenox x 4 doses. Will decreased to standard prophylactic dose. ECHO: LVH, EF 60-65%, mild dil L atrium, mitral annular calcification, mild mitral regurg, sclerotic aortic valve, mild tricuspid regurg MRA Abdomen: Negative for any renal artery stenosis. Transfer to telemetry with close BP monitoring. Fibroids CT Abd: Huge multilobulated pelvic mass with dystrophic calcifications evidence for very extensive uterine fibroids. Small density in the right lobe of the liver. Oupt f/u needed, consider DATA PROGRAMMER consult outpatient Elevated Cre: CKD vs DAIN Cre: 1.28 > 1.43 > 1.30 > 1.36 > 1.64 Will trend. Diet: HHLSo DVT: Lovenox GI Prophylaxis: Pepcid Code Status: Full Dispo: Stable, inpatient Addendum - Attending - Attending Attestation Date/Time: 04/08/19 4870 I personally evaluated the patient and discussed the management with Dr. Tarylor. I agree with the History, Examination, Assessment and Plan documented above with any addition or exceptions noted below. The patient was sitting up in a chair. sbp in 160's. She denies headache, chest pain, blurry vision. Increasing lisinonpril. Transferring to tele
[2019-04-08 08:00] LABS: Anion Gap 14 mmol/L (10-20); BUN (Urea Nitrogen) 23 mg/dL (9.8-20.1); Calc. Creatinine Clearance 34 mL/min (70-130); Calcium 9.9 mg/dL (7.8-10.44); Carbon Dioxide 24 mmol/L (23-31); Chloride 101 mmol/L (98-107); Estimated GFR-MDRD 38; Glucose 102 mg/dL (80-115); Potassium 3.6 mmol/L (3.5-5.1); Sodium 135 mmol/L (136-145)
[2019-04-08] MEDS: Amlodipine 10 MG TAB PO SCH (08:12)
[2019-04-08] MEDS: Famotidine 20 MG TAB PO SCH (08:13)
[2019-04-08] MEDS: Aspirin 81 mg Enteric Coated Tablet PO SCH (08:13)
[2019-04-08] MEDS: Hydrochlorothiazide 25 MG TAB PO SCH ×2 (08:14→20:42)
[2019-04-08] MEDS: Metoprolol Tartrate 100 MG TAB PO SCH ×2 (08:14→20:42)
[2019-04-08] MEDS: Enoxaparin Sodium 40 MG/0.4 ML SYRINGE SC SCH (08:18)
[2019-04-08] MEDS: Lisinopril 20 MG TAB PO SCH (08:18)
[2019-04-08] MEDS ORDERED: Sodium Chloride 0.9% 1,000 ML IV SCH (08:45)
[2019-04-08] MEDS ORDERED: Enoxaparin Sodium 40 MG/0.4 ML SYRINGE SC SCH (09:00)
--- NOTE | 2019-04-08 09:28 | PRG ---
DATE OF SERVICE: 04/08/2019 SUBJECTIVE: The patient is awake, alert, doing well, has no acute complaints. OBJECTIVE: VITAL SIGNS: Temperature 99, pulse 61, blood pressure 166/72, O2 saturation 95%. A 24-hour intake 830, output 1800. HEENT: Unremarkable. NECK: No adenopathy or JVD. CHEST: Clear anteriorly. CARDIAC: S1, S2. Regular. ABDOMEN: Soft. EXTREMITIES: No edema. LABORATORY DATA: No labs were obtained today. ASSESSMENT: 1. Hypertensive emergency, resolved. 2. Hypertensive encephalopathy, resolved. 3. Uterine fibroids. PLAN: I would recommend transferring her out to the floor. I would recommend going down to a prophylactic dose of Lovenox. Job ID: [id number]
[2019-04-08] MEDS: hydrALAZINE 20 MG/ML VIAL SLOW IVP PRN ×2 (16:07→22:09)
--- NOTE | 2019-04-08 16:41 | EKG ---
Test Reason : Blood Pressure : / mmHG Vent. Rate : 079 BPM Atrial Rate : 079 BPM P-R Int : 158 ms QRS Dur : 090 ms QT Int : 428 ms P-R-T Axes : 068 024 051 degrees QTc Int : 490 ms Normal sinus rhythm Right atrial enlargement Voltage criteria for left ventricular hypertrophy Nonspecific T wave abnormality Prolonged QT Abnormal ECG Confirmed by DELANEY PIZANO ([id number]) on 04/08/2019 4:40:54 PM Referred By: BARTOLOME *R Confirmed By:DELANEY PIZANO
[2019-04-08] MEDS ORDERED: NIFEdipine XL 30 MG TAB PO SCH (18:00)
[2019-04-08] MEDS: Atorvastatin Calcium 40 MG TAB PO SCH (20:42)
[2019-04-09] MEDS: hydrALAZINE 20 MG/ML VIAL SLOW IVP PRN ×2 (00:10→15:33)
--- NOTE | 2019-04-09 05:55 | PDOC.FM ---
- Subjective Subjective: . Officer is doing better this morning. Denies headache, chest pain, shortness of breath, and abdominal pain. She states that she is more cognizant today, she recognizes that she was "out of it" for the past several days. She is still incontinent at night, which is new. - Objective MAR Reviewed: Yes Vital Signs & Weight: Vital Signs (12 hours) Temp Pulse Resp BP BP BP BP 04/09/19 03:10 98.8 F 60 18 133/63 04/09/19 00:10 62 180/88 H 04/08/19 23:50 59 L 159/80 H 04/08/19 22:09 70 188/89 H 04/08/19 18:32 70 04/08/19 18:30 163/74 H Pulse Ox 04/09/19 03:10 95 04/09/19 00:10 04/08/19 23:50 04/08/19 22:09 04/08/19 18:32 04/08/19 18:30 Weight Admit Weight 68.266 kg Weight 63 kg Most Recent Monitor Data Heart Rate from ECG 63 NIBP 165/90 NIBP BP-Mean 115 Respiration from ECG 23 SpO2 94 I&O: 04/07/19 04/08/19 04/09/19 06:59 06:59 06:59 Intake Total 2050 830 1385 Output Total 2300 1800 575 Balance -250 -970 810 Result Diagrams: 04/05/19 05:07 04/09/19 08:42 Phys Exam - Physical Examination Constitutional: NAD HEENT: PERRLA, moist MMs, sclera anicteric Neck: supple, full ROM Respiratory: no wheezing, no rales, no rhonchi, clear to auscultation bilateral Cardiovascular: RRR, no rub systolic murmur Gastrointestinal: soft, non-tender, positive bowel sounds large palpable fibroid Musculoskeletal: no edema, pulses present Neurological: non-focal, moves all 4 limbs Psychiatric: normal affect, A&O x 3 Skin: no rash, normal turgor Dx/Plan - Plan Plan: Pt is 63 yo F with history of fibroids who presents with elevated blood pressure , nausea, and dizziness of 2 days. HTN Emergency, improving HTN Encephalopathy, improving BP: 233/131 on presentation. Overnight 160-180/70-100. Hydralazine prn for SBP > 180. Required 2x overnight. HCTZ 25BID, Lisinopril 20mg, Metoprolol 100mg BID, Nifedipine 30XR [X]Amlodipine 10po ECHO: LVH, EF 60-65%, mild dil L atrium, mitral annular calcification, mild mitral regurg, sclerotic aortic valve, mild tricuspid regurg MRA Abdomen: Negative for any renal artery stenosis. Repeat MRI today to evaluate swelling. Renin and aldosterone levels pending. Transfer to telemetry with close BP monitoring. Will start to consider discharge with follow up in primary care if BP remains below 180 on oral medications. Fibroids CT Abd: Huge multilobulated pelvic mass with dystrophic calcifications evidence for very extensive uterine fibroids. Small density in the right lobe of the liver. Oupt f/u needed, consider APPRENTICE PAINTER HAND consult outpatient Elevated Cre: CKD vs DAIN Cre: 1.28 > 1.43 > 1.30 > 1.36 > 1.64 Will trend. Diet: HHLSo DVT: Lovenox GI Prophylaxis: Pepcid Code Status: Full Dispo: Stable, inpatient Addendum - Attending - Attending Attestation Date/Time: 04/09/191928 I personally evaluated the patient and discussed the management with Dr. Traylor. I agree with the History, Examination, Assessment and Plan documented above with any addition or exceptions noted below. The patient is more alert this morning. Will repeat her MRI brain. Adjusting bp meds. appreciate cards recs.
[2019-04-09] MEDS: Metoprolol Tartrate 100 MG TAB PO SCH (08:24)
[2019-04-09] MEDS: Famotidine 20 MG TAB PO SCH (08:24)
[2019-04-09] MEDS: hydrALAZINE 25 MG TAB PO SCH ×2 (08:24→20:12)
[2019-04-09] MEDS: Aspirin 81 mg Enteric Coated Tablet PO SCH (08:24)
[2019-04-09] MEDS: Enoxaparin Sodium 40 MG/0.4 ML SYRINGE SC SCH (08:25)
[2019-04-09] MEDS: Lisinopril 20 MG TAB PO SCH (08:25)
[2019-04-09] MEDS ORDERED: NIFEdipine XL 30 MG TAB PO SCH (09:00)
[2019-04-09 09:27] LABS: Anion Gap 17 mmol/L (10-20); BUN (Urea Nitrogen) 28 mg/dL (9.8-20.1); Calc. Creatinine Clearance 34 mL/min (70-130); Carbon Dioxide 22 mmol/L (23-31); Chloride 99 mmol/L (98-107); Estimated GFR-MDRD 37; Glucose 219 mg/dL (80-115); Potassium 3.5 mmol/L (3.5-5.1); Sodium 134 mmol/L (136-145)
--- NOTE | 2019-04-09 14:00 | PRG ---
DATE OF SERVICE: 04/09/2019 PRIMARY TECHNICAL SALES MANAGER: Dr. Almonte. SUBJECTIVE: Ms. Officer is doing well. She is sitting up. No chest pain or pressure. OBJECTIVE: VITAL SIGNS: Her blood pressure was 160/77 followed by 140/69, pulse 60. LUNGS: Clear. CARDIAC: Normal S1, normal S2. ABDOMEN: Soft and nontender. ASSESSMENT: 1. Hypertension with hypertensive heart disease and left ventricular hypertrophy. 2. Type 2 [id number] myocardial infarction. 3. Previous smoker. 4. Hypercholesterolemia. 5. Renal insufficiency/renal failure, stage 3. Estimated GFR is 37. PLAN: 1. We will reduce lisinopril to 10 mg a day in view of the renal insufficiency. 2. Continue statin. 3. She has been taken off the diuretic. 4. She is taken off amlodipine, and put her on nifedipine, we will increase dose tomorrow. 5. Stress test prior to discharge. Job ID: [id number]
--- NOTE | 2019-04-09 17:28 | MRI ---
MRI BRAIN WITH AND WITHOUT CONTRAST: DATE: 04/09/2019 HISTORY: 63-year-old female with nausea, abnormal gait, generalized weakness, and frequent falls. Abnormal non contrast MRI on 04/05/2019. COMPARISON: 04/05/2019 TECHNIQUE: Multiplanar, multisequence MRI of the brain performed pre- and post-IV injection of gadolinium based contrast agent. FINDINGS: There is a new tiny focus of restricted diffusion located located either at the posterior limb of the left internal capsule or the posterior aspect of left basal ganglia, representing a tiny acute lacunar infarction. There is no other focus of abnormal enhancement. There are at least 4 punctate tiny hemosiderin stains representing tiny microhemorrhages, one in the right frontal cuellar-white junction, another one in the right parietal cuellar-white junction, another at the left temporal parieto-occipital junction, and another at the junction between the anterior por tion of the cerebellar vermis and the superior aspect of right cerebellar hemisphere. Again noted is the severe, extensive, confluent T2 hyperintense signal abnormality throughout the shira ateral periventricular, deep, and subcortical white matter; midbrain, mckenzie, and medulla; brachium pontis and dentate nuclei; and in the bilateral internal and external capsules. There are also multiple focal T2 hyperintense signal abnormalities in the bilateral thalami, bilatera l basal ganglia, right caudate nucleus, and left abreu radiata, representing multiple old lacunar infarctions. No abnormal enhancement. Ventricles are normal in size and configuration. No mass effect, mass, abscess, dural venous sinus thrombosis, or extra-axial fluid collection. IMPRESSION: 1) new tiny acute lacunar infarction in the left basal ganglia. 2) no other interval change. 3) multiple old lacunar infarctions in the bilateral corpus striatum and bilateral thalami. 4) extensive, severe, confluent signal abnormality throughout the white matter, both supratentorially and in the posterior fossa. Etiology uncertain. Possibilities include very severe chronic ischemic white matter changes due to microvascular atherosclerosis, primary SHOTGUN SHELL REPRINTING UNIT OPERATOR angiitis, acute or subacute me tabolic disorder, inflammatory/infectious process, and end-stage multiple sclerosis. 5) several tiny punctate foci of remote tiny hemorrhages. Differential diagnosis chronic hypertensive encephalopathy and mild amyloid angiopathy.
[2019-04-09] MEDS: Atorvastatin Calcium 40 MG TAB PO SCH (20:12)
--- NOTE | 2019-04-10 05:38 | PDOC.FM ---
- Subjective Subjective: Unable to obtain history from patient. Patient sleeping, and awakens only for seconds at a time before falling back asleep. Nursing staff reports patient was incontinent yesterday, which is new for her. BP was in 140s/70s overnight and pt did not require any IV hydralazine. Telemetry showed sinus in 70s. - Objective Vital Signs & Weight: Vital Signs (12 hours) Temp Pulse Pulse Pulse Resp BP BP 04/10/19 04:00 98.7 F 81 18 04/09/19 23:34 77 04/09/19 20:12 69 147/72 H 04/09/19 20:00 96.9 F L 69 18 04/09/19 18:06 67 70 182/81 H BP BP Pulse Ox 04/10/19 04:00 158/74 H 96 04/09/19 23:34 144/69 H 04/09/19 20:12 04/09/19 20:00 147/72 H 98 04/09/19 18:06 184/82 H Weight Admit Weight 68.266 kg Weight 62.369 kg Most Recent Monitor Data Heart Rate from ECG 63 NIBP 165/90 NIBP BP-Mean 115 Respiration from ECG 23 SpO2 94 I&O: 04/08/19 04/09/19 04/10/19 06:59 06:59 06:59 Intake Total 830 1865 690 Output Total 1800 575 Balance -970 1290 690 Result Diagrams: 04/05/19 05:07 04/10/19 05:47 Phys Exam - Physical Examination Constitutional: NAD HEENT: moist MMs Neck: no JVD, supple Respiratory: no wheezing, clear to auscultation bilateral Cardiovascular: RRR, no significant murmur Gastrointestinal: soft, positive bowel sounds Musculoskeletal: no edema, pulses present Skin: no rash, normal turgor Dx/Plan (1) Fibroids Code(s): D21.9 - BENIGN NEOPLASM OF CONNECTIVE AND OTHER SOFT TISSUE, UNSP Status: Acute (2) Hypertensive emergency Code(s): I16.1 - HYPERTENSIVE EMERGENCY Status: Acute - Plan Plan: Pt is 63 yo F with history of fibroids who presents with elevated blood pressure , nausea, and dizziness of 2 days: #HTN Emergency, improving #HTN Encephalopathy, improving -BP: 233/131 on presentation. Overnight 140-160/70s (1 episode of 184/82 @ 1800 yesterday). -Hydralazine prn for SBP > 180. Did not require any overnight. Last dose required @ 1500 on 04/09/19 -Lisinopril 10mg, Metoprolol 100mg BID, Nifedipine 60XR [X]Amlodipine 10po, HCTZ 25 mg BID, Lisinopril 20mg, Nifedipine 30XR -ECHO: LVH, EF 60-65%, mild dil L atrium, mitral annular calcification, mild mitral regurg, sclerotic aortic valve, mild tricuspid regurg -MRA Abdomen: Negative for any renal artery stenosis. -Repeat MRI on 04/09/19 showed continued severe changes in white matter & new CVA , lacunar infarct in left basal ganglia -Renin and aldosterone levels pending. -Transfer to telemetry on 04/09/19 with close BP monitoring. Will start to consider discharge with follow up in primary care if BP remains below 180 today on oral medications. -Neuro consult--Dustin, dave recs #Fibroids -CT Abd: Huge multilobulated pelvic mass with dystrophic calcifications evidence for very extensive uterine fibroids. Small density in the right lobe of the liver. -Digital Account Supervisor consulted--German: recommend Oupt f/u with [facility] [place] as soon as BP controlled #Elevated Cre: CKD vs DAIN -Cre: 1.28 > 1.43 > 1.30 > 1.36 > 1.64 -Will trend with AM BMP Diet: HHLSo DVT: Lovenox GI Prophylaxis: Pepcid Code Status: Full Dispo: Stable, admitted to inpatient with discharge goal of BP <180 systolic on PO meds. Will need close outpatient f/u upon discharge with PCP and [facility] services. Will consult Dr. Chan with Neurology today due to new CVA on repeat MRI done on 04/09. Addendum - Attending - Attending Attestation Date/Time: 04/10/19 4135 I personally evaluated the patient and discussed the management with Dr. Leung. I agree with the History, Examination, Assessment and Plan documented above with any addition or exceptions noted below. Pt with new stroke noted on MRI. She will have stress test today. Consulting neurology, therapy. Starting statin.
[2019-04-10 06:31] LABS: Anion Gap 15 mmol/L (10-20); BUN (Urea Nitrogen) 33 mg/dL (9.8-20.1); Calc. Creatinine Clearance 38 mL/min (70-130); Calcium 9.6 mg/dL (7.8-10.44); Carbon Dioxide 22 mmol/L (23-31); Chloride 101 mmol/L (98-107); Estimated GFR-MDRD 38; Glucose 102 mg/dL (80-115); Potassium 3.8 mmol/L (3.5-5.1); Sodium 134 mmol/L (136-145)
[2019-04-10] MEDS ORDERED: NIFEdipine XL 60 MG TAB PO SCH (09:00)
[2019-04-10] MEDS ORDERED: ADENOSINE 60 MG/20 ML VIAL ONE (09:51)
--- NOTE | 2019-04-10 10:19 | CON ---
DATE OF CONSULTATION: 04/10/2019 CONSULTING PHYSICIAN: Family Medicine. IMPRESSION: Asymptomatic lacunar infarction with superimposed severe white matter disease related to hypertension. PLAN: 1. Continue aspirin and statin as you have undertaken. 2. Blood pressure management. 3. Smoking cessation. HISTORY OF PRESENT ILLNESS: Ms. Patelr is a 63-year-old female who has been in the hospital the last few days. She was acting a bit encephalopathic. She is being severely hypertensive with diastolics over 100. She had an MRI of the brain done to evaluate her mental status changes. A small left basal ganglia lacunar infarction was found. This was superimposed on extensive periventricular white matter changes throughout. She denies any past history of stroke symptoms. She denies history of diabetes or heart disease. She was not on aspirin daily. She did not take a statin prior to admission. She denies any illicit drug use. She has not had any lateralized weakness or numbness. She denies any slurred speech, tic, difficulty swallowing, or headache. PAST MEDICAL HISTORY: Hypertension. ALLERGIES: NONE REPORTED. SOCIAL HISTORY: Positive for tobacco. FAMILY HISTORY: Noncontributory. REVIEW OF SYSTEMS: Ten-system review of systems is otherwise negative. PHYSICAL EXAMINATION: GENERAL: She is a well-nourished, middle-aged woman, in no acute distress. VITAL SIGNS: As noted. HEENT: Pupils are equal. Conjunctivae clear. Oropharynx clear. Cranium, normocephalic and atraumatic. NECK: Supple. No lymphadenopathy. EXTREMITIES: No cyanosis, clubbing, or edema. NEUROLOGIC: She is alert and cooperative. Her speech is fluent and clear. Cranial nerves 2 through 12 are intact. Motor exam shows good strength bilaterally without fix or drift. Cerebellar testing shows normal [id number] and rapid alternating movements. Sensation was intact to touch bilaterally. No abnormal movements were seen. Gait is independent. IMAGING STUDIES: EKG, normal sinus rhythm with right atrial enlargement. Echocardiogram showed a 60% to 65% ejection fraction. SUMMARY: A middle-aged woman with severe hypertension and extensive microvascular disease. Fortunately, her infarct was asymptomatic. I suspect that her mental status changes were more likely related to her hypertension. She seems to be at a normal baseline at this point. I agree with your management. Job ID: [id number]
[2019-04-10] MEDS: Enoxaparin Sodium 40 MG/0.4 ML SYRINGE SC SCH (11:09)
[2019-04-10] MEDS: hydrALAZINE 20 MG/ML VIAL SLOW IVP PRN (11:09)
[2019-04-10 11:16] LABS: Cardiac Risk 5.5 (Less than 4.5)
[2019-04-10] MEDS: hydrALAZINE 25 MG TAB PO SCH ×2 (15:02→20:02)
[2019-04-10] MEDS: Aspirin 81 mg Enteric Coated Tablet PO SCH (15:03)
[2019-04-10] MEDS: Famotidine 20 MG TAB PO SCH (15:03)
[2019-04-10] MEDS: Lisinopril 10 MG TAB PO SCH (15:03)
--- NOTE | 2019-04-10 15:34 | NM ---
EXAM: NM Cardiac Stress W EF WF PROVIDED CLINICAL HISTORY: Hypertensive emergency COMPARISON: None RADIOPHARMACEUTICAL: 29.9 millicuries technetium 99m labeled sestamibi IV stress 9.2 millicuries technetium 99m labeled sestamibi IV rest FINDINGS: There is normal, homogeneous distribution of radiotracer throughout the left ventricular myocardium. Gated data demonstrate septal hypokinesis with calculated LVEF 47%. Calculated TID is 1.08. IMPRESSION: 1. No scintigraphic evidence for ischemia. 2. Calculated LVEF 47%. Septal hypokinesis.
[2019-04-10] MEDS: Metoprolol Tartrate 100 MG TAB PO SCH (20:02)
[2019-04-10] MEDS: Atorvastatin Calcium 40 MG TAB PO SCH (20:02)
[2019-04-11] MEDS: hydrALAZINE 20 MG/ML VIAL SLOW IVP PRN (04:25)
--- NOTE | 2019-04-11 05:42 | PDOC.FM ---
- Subjective Subjective: Patient states that she feels a little "unsteady" this morning. She is also complaining of some lower abdominal pain. Nursing staff has noted intermittent slurred speech the past 2 days. Patient states that her incontinence has been going on for 2-3 months, describes as "I've been letting my urine go without trying for a few months" which has been accompanied by lower abdominal pain that has been increasing in severity. Telemetry showed sinus rhythm in the 70s- 100s. At approx. 0400 she has BP of 213/99, given 1 dose Hydralazine then BP 195 /89, given 2nd dose of Hydralazine then BP 154/71. - Objective Vital Signs & Weight: Vital Signs (12 hours) Temp Pulse Resp BP BP Pulse Ox 04/11/19 04:25 88 213/99 H 04/11/19 04:00 97.9 F 88 14 213/99 H 93 L 04/10/19 20:02 93 176/81 H 04/10/19 20:00 99.3 F 93 18 176/81 H 93 L Weight Admit Weight 68.266 kg Weight 64.682 kg Most Recent Monitor Data Heart Rate from ECG 63 NIBP 165/90 NIBP BP-Mean 115 Respiration from ECG 23 SpO2 94 I&O: 04/09/19 04/10/19 04/11/19 06:59 06:59 06:59 Intake Total 1865 1240 360 Output Total 575 Balance 1290 1240 360 Result Diagrams: 04/05/19 05:07 04/11/19 05:54 Phys Exam - Physical Examination Constitutional: NAD HEENT: moist MMs, sclera anicteric Neck: supple, full ROM Respiratory: no wheezing, no rhonchi, clear to auscultation bilateral Cardiovascular: RRR grade I/II murmur over mitral area Gastrointestinal: positive bowel sounds TTP in lower abdomen, multiple firm areas (underlying fibroids) grossly Musculoskeletal: no edema, pulses present Neurological: moves all 4 limbs Psychiatric: normal affect, A&O x 3 Skin: no rash, normal turgor Dx/Plan (1) Fibroids Code(s): D21.9 - BENIGN NEOPLASM OF CONNECTIVE AND OTHER SOFT TISSUE, UNSP Status: Acute (2) Hypertensive emergency Code(s): I16.1 - HYPERTENSIVE EMERGENCY Status: Acute - Plan Plan: Pt is 63 yo F with history of fibroids who presents with elevated blood pressure , nausea, and dizziness of 2 days: #HTN Emergency, improving #HTN Encephalopathy, improving -BP: 233/131 on presentation. Overnight 170s-210s/90s (1 episode of 213/99 @ 0400 today). -Hydralazine prn for SBP > 180. 2 doses overnight. Last dose required @ 0600 on 04/10/19 -Lisinopril 10mg, Metoprolol 100mg BID, Nifedipine 90XR, Hydralazine 100mg BID [X]Amlodipine 10po, HCTZ 25 mg BID, Lisinopril 20mg, Nifedipine 30XR, Nifedipine 60XR, Hydralazine 50mg BID -ECHO: LVH, EF 60-65%, mild dil L atrium, mitral annular calcification, mild mitral regurg, sclerotic aortic valve, mild tricuspid regurg -Stress test: 47% EF, no ischemia, septal hypokinesis -MRA Abdomen: Negative for any renal artery stenosis. -Cardio Consult--Gage/Cira, appreciate recs -Repeat MRI on 04/09/19 showed continued severe changes in white matter & new CVA , lacunar infarct in left basal ganglia -Renin and aldosterone levels pending -Will check 24hr urine metanephrines today -Transfer to telemetry on 04/09/19 with close BP monitoring. Will start to consider discharge with follow up in primary care if BP remains below 180 today on oral medications. -Neuro consult--Dustin, to continue ASA, statin, and control BP; appreciate recs #Fibroids -CT Abd: Huge multilobulated pelvic mass with dystrophic calcifications evidence for very extensive uterine fibroids. Small density in the right lobe of the liver. -Transition Social Worker consulted--German: recommend Oupt f/u with [facility] [place] as soon as BP controlled #Elevated Cre: CKD vs DAIN -Cre: 1.28 > 1.43 > 1.30 > 1.36 > 1.64 > 1.50 -Will trend with AM BMP Diet: HHLSo DVT: Lovenox GI Prophylaxis: Pepcid Code Status: Full Dispo: Stable, admitted to inpatient with discharge goal of BP <180 systolic on PO meds. Will need close outpatient f/u upon discharge with PCP and MAINTENANCE REPAIRMAN services. Will await further recs from Cardiology. Addendum - Attending - Attending Attestation Date/Time: 04/11/19 1505 I personally evaluated the patient and discussed the management with Dr. Leung. I agree with the History, Examination, Assessment and Plan documented above with any addition or exceptions noted below. DAIN on probable ckd is improving. Pt had her sbp spike to 200 overnight. Adjusting hydralazine and procardia. Stress test reviewed and showed left ventricular hypokinesis. Her incontinence is chronic per pt. Will try oxybutynin to see if this helps.
[2019-04-11 06:44] LABS: ALT (SGPT) 19 U/L (8-55); AST (SGOT) 25 U/L (5-34); Alkaline Phosphatase 115 U/L (40-150); Anion Gap 15 mmol/L (10-20); BUN (Urea Nitrogen) 27 mg/dL (9.8-20.1); Bilirubin, Total 0.6 mg/dL (0.2-1.2); Calc. Creatinine Clearance 39 mL/min (70-130); Calcium 10.3 mg/dL (7.8-10.44); Carbon Dioxide 23 mmol/L (23-31); Chloride 102 mmol/L (98-107); Estimated GFR-MDRD 42; Globulin 3.6 g/dL (2.4-3.5); Glucose 124 mg/dL (80-115); Potassium 3.8 mmol/L (3.5-5.1); Protein, Total 7.6 g/dL (6.0-8.3); Sodium 136 mmol/L (136-145)
[2019-04-11] MEDS: hydrALAZINE 25 MG TAB PO SCH ×2 (08:03→20:55)
[2019-04-11] MEDS: Enoxaparin Sodium 40 MG/0.4 ML SYRINGE SC SCH (08:03)
[2019-04-11] MEDS: Metoprolol Tartrate 100 MG TAB PO SCH ×2 (08:04→20:55)
[2019-04-11] MEDS: NIFEdipine XL 90 MG TAB PO SCH (08:04)
[2019-04-11] MEDS: Aspirin 81 mg Enteric Coated Tablet PO SCH (08:04)
[2019-04-11] MEDS: Famotidine 20 MG TAB PO SCH (08:04)
[2019-04-11] MEDS: Lisinopril 10 MG TAB PO SCH (08:04)
[2019-04-11] MEDS ORDERED: Acetaminophen 325 MG TAB PO SCH (08:30)
[2019-04-11] MEDS ORDERED: Oxybutynin 5 MG TAB PO SCH (10:15)
--- NOTE | 2019-04-11 11:10 | PRG ---
DATE OF SERVICE: 04/11/2019 SUBJECTIVE: Ms. Officer is doing better today. No chest pain or pressure. The stress test did not show any ischemia. OBJECTIVE: VITAL SIGNS: Her blood pressure is still high at 155/76, but it is improved; pulse 85. LUNGS: Clear. CARDIAC: Normal S1. Normal S2. ABDOMEN: Soft and nontender. ASSESSMENT: 1. Hypertensive urgency, stable now. 2. Stress test showed no ischemia. The ejection fraction was estimated at 47%, but the echocardiogram showed an ejection fraction of 60% to 65%. I think that ejection fraction is more reliable. She also has moderate concentric left ventricular hypertrophy. 3. Hyperlipidemia. 4. Chronic kidney disease, stage 3. PLAN: Continue current medical regimen. Probably home soon possibly tomorrow. Dr. Almonte to see the patient tomorrow. Job ID: [id number]
[2019-04-11] MEDS ORDERED: Acetaminophen 325 MG TAB PO PRN (14:30)
[2019-04-11] MEDS: Atorvastatin Calcium 40 MG TAB PO SCH (20:55)
[2019-04-12 05:30] LABS: Anion Gap 15 mmol/L (10-20); BUN (Urea Nitrogen) 30 mg/dL (9.8-20.1); Calc. Creatinine Clearance 35 mL/min (70-130); Carbon Dioxide 23 mmol/L (23-31); Chloride 101 mmol/L (98-107); Estimated GFR-MDRD 38; Glucose 122 mg/dL (80-115); Potassium 3.7 mmol/L (3.5-5.1); Sodium 135 mmol/L (136-145)
--- NOTE | 2019-04-12 05:31 | PDOC.FM ---
- Subjective Subjective: Pt is doing well. She has no OH or chest pain. She says she is eating ok, but less than at home. She said her last BM was day before yesterday. Usually daily , but she has not been eating as much. - Objective MAR Reviewed: Yes Vital Signs & Weight: Vital Signs (12 hours) Temp Pulse Resp BP BP Pulse Ox 04/12/19 04:00 99.4 F 70 18 161/76 H 96 04/11/19 20:55 69 147/74 H 04/11/19 20:00 98.0 F 69 16 147/74 H 97 04/11/19 19:25 97 Weight Admit Weight 68.266 kg Weight 64.093 kg Most Recent Monitor Data Heart Rate from ECG 63 NIBP 165/90 NIBP BP-Mean 115 Respiration from ECG 23 SpO2 94 I&O: 04/10/19 04/11/19 04/12/19 06:59 06:59 06:59 Intake Total 1240 360 700 Output Total 650 Balance 1240 360 50 Result Diagrams: 04/05/19 05:07 04/12/19 04:41 Phys Exam - Physical Examination Constitutional: NAD HEENT: PERRLA Neck: no nodes, supple, full ROM Respiratory: no wheezing, clear to auscultation bilateral Cardiovascular: RRR grade II murmur in mitral region Gastrointestinal: soft, non-tender, positive bowel sounds Musculoskeletal: no edema, pulses present Neurological: moves all 4 limbs Psychiatric: normal affect Skin: normal turgor, cap refill <2 seconds Dx/Plan (1) Hypertensive emergency Code(s): I16.1 - HYPERTENSIVE EMERGENCY Status: Acute (2) Fibroids Code(s): D21.9 - BENIGN NEOPLASM OF CONNECTIVE AND OTHER SOFT TISSUE, UNSP Status: Acute (3) CKD (chronic kidney disease) Code(s): N18.9 - CHRONIC KIDNEY DISEASE, UNSPECIFIED Status: Acute - Plan Plan: Pt is 63 yo F with history of fibroids who presents with elevated blood pressure , nausea, and dizziness of 2 days: 1.HTN Emergency with HTN Encephalopathy, improving * BP: 233/131 on presentation. Overnight 170s-210s/90s (1 episode of 213/99 @ 0400 today). * Hydralazine prn for SBP > 180. 2 doses overnight. Last dose required @ 0600 on 04/10/19 * Lisinopril 10mg, Metoprolol 100mg BID, Nifedipine 90XR, Hydralazine 100mg BID [X]Amlodipine 10po, HCTZ 25 mg BID, Lisinopril 20mg, Nifedipine 30XR, Nifedipine 60XR, Hydralazine 50mg BID * ECHO: LVH, EF 60-65%, mild dil L atrium, mitral annular calcification, mild mitral regurg, sclerotic aortic valve, mild tricuspid regurg * Stress test: 47% EF, no ischemia, septal hypokinesis * MRA Abdomen: Negative for any renal artery stenosis. * Cardio Consult--Gage/Cira, appreciate recs * Repeat MRI on 04/09/19 showed continued severe changes in white matter & new CVA, lacunar infarct in left basal ganglia * Renin and aldosterone levels pending * Will check 24hr urine metanephrines pending * Transfer to telemetry on 04/09/19 with close BP monitoring. Will start to consider discharge with follow up in primary care if BP remains below 180 today on oral medications. * Neuro consult--states Dustin to continue ASA, statin, and control BP; appreciate recs 2. Fibroids * CT Abd: Huge multilobulated pelvic mass with dystrophic calcifications evidence for very extensive uterine fibroids. Small density in the right lobe of the liver. * Manager Sign consulted-German: recommend Oupt f/u with [facility] [place] as soon as BP controlled 3. Elevated Cre: CKD vs DAIN * Cre: 1.28 > 1.43 > 1.30 > 1.36 > 1.64 > 1.50 > 1.63 * Will trend with AM BMP Diet: HHLSo DVT: Lovenox GI Prophylaxis: Pepcid Code Status: Full Dispo: Stable, admitted to inpatient with discharge if BP is well controlled. Will need close outpatient f/u upon discharge with PCP and EXHIBIT ELECTRICIAN services. Addendum - Attending - Attending Attestation Date/Time: 04/12/19 1103 I personally evaluated the patient and discussed the management with Dr. Padron. I agree with the History, Examination, Assessment and Plan documented above with any addition or exceptions noted below. Patient overall doing well. Augmenting BP control. Renal function stable. Labs for hyperaldosteronism pending.
[2019-04-12] MEDS: Famotidine 20 MG TAB PO SCH (08:47)
[2019-04-12] MEDS: NIFEdipine XL 90 MG TAB PO SCH (08:47)
[2019-04-12] MEDS: Metoprolol Tartrate 100 MG TAB PO SCH ×2 (08:47→20:20)
[2019-04-12] MEDS: hydrALAZINE 25 MG TAB PO SCH ×2 (08:47→20:20)
[2019-04-12] MEDS: Oxybutynin 5 MG TAB PO SCH (08:47)
[2019-04-12] MEDS: Aspirin 81 mg Enteric Coated Tablet PO SCH (08:47)
[2019-04-12] MEDS: Lisinopril 20 MG TAB PO SCH (08:47)
[2019-04-12] MEDS ORDERED: Enoxaparin Sodium 40 MG/0.4 ML SYRINGE SC SCH (09:00)
[2019-04-12] MEDS ORDERED: Spironolactone 25 MG TAB PO SCH (16:15)
[2019-04-12] MEDS: Atorvastatin Calcium 40 MG TAB PO SCH (20:20)
[2019-04-13 05:05] LABS: Anion Gap 12 mmol/L (10-20); BUN (Urea Nitrogen) 35 mg/dL (9.8-20.1); Calc. Creatinine Clearance 39 mL/min (70-130); Carbon Dioxide 23 mmol/L (23-31); Chloride 100 mmol/L (98-107); Estimated GFR-MDRD 40; Glucose 112 mg/dL (80-115); Potassium 3.9 mmol/L (3.5-5.1); Sodium 131 mmol/L (136-145)
--- NOTE | 2019-04-13 05:45 | PDOC.FM ---
- Subjective Subjective: Pt is doing well this morning and has no complaints. She says she has no OH or dizziness. - Objective MAR Reviewed: Yes Vital Signs & Weight: Vital Signs (12 hours) Temp Pulse Resp BP BP Pulse Ox 04/13/19 03:53 97.6 F 66 15 144/71 H 95 04/12/19 23:39 98.1 F 70 19 146/78 H 95 04/12/19 20:20 96 04/12/19 19:32 98.4 F 68 16 144/72 H 96 Weight Admit Weight 68.266 kg Weight 67.767 kg Most Recent Monitor Data Heart Rate from ECG 63 NIBP 165/90 NIBP BP-Mean 115 Respiration from ECG 23 SpO2 94 I&O: 04/11/19 04/12/19 04/13/19 06:59 06:59 06:59 Intake Total 360 700 800 Output Total 650 540 Balance 360 50 260 Result Diagrams: 04/05/19 05:07 04/13/19 04:32 Phys Exam - Physical Examination Constitutional: NAD HEENT: PERRLA, moist MMs Neck: supple, full ROM Respiratory: clear to auscultation bilateral Cardiovascular: RRR grade II systolic murmur present in mitral region Gastrointestinal: positive bowel sounds Musculoskeletal: no edema, pulses present Neurological: normal sensation, moves all 4 limbs Psychiatric: normal affect Skin: no rash, normal turgor Dx/Plan (1) Hypertensive emergency Code(s): I16.1 - HYPERTENSIVE EMERGENCY Status: Acute (2) Fibroids Code(s): D21.9 - BENIGN NEOPLASM OF CONNECTIVE AND OTHER SOFT TISSUE, UNSP Status: Acute (3) CKD (chronic kidney disease) Code(s): N18.9 - CHRONIC KIDNEY DISEASE, UNSPECIFIED Status: Acute - Plan Plan: Pt is 63 yo F with history of fibroids who presents with elevated blood pressure , nausea, and dizziness of 2 days: 1.HTN Emergency with HTN Encephalopathy, Resolved * BP: 233/131 on presentation. Overnight 170s-210s/90s (1 episode of 213/99 @ 0400 today). * Hydralazine prn for SBP > 180. 2 doses overnight. Last dose required @ 0600 on 04/10/19 * Lisinopril 10mg, Metoprolol 100mg BID, Nifedipine 90XR, Hydralazine 100mg BID [X]Amlodipine 10po, HCTZ 25 mg BID, Lisinopril 20mg, Nifedipine 30XR, Nifedipine 60XR, Hydralazine 50mg BID * ECHO: LVH, EF 60-65%, mild dil L atrium, mitral annular calcification, mild mitral regurg, sclerotic aortic valve, mild tricuspid regurg * Stress test: 47% EF, no ischemia, septal hypokinesis * MRA Abdomen: Negative for any renal artery stenosis. * Cardio Consult-Gage/Cira, appreciate recs * Repeat MRI on 04/09/19 showed continued severe changes in white matter & new CVA, lacunar infarct in left basal ganglia * Renin and aldosterone levels pending * Will check 24hr urine metanephrines pending * Transfer to telemetry on 04/09/19 with close BP monitoring. Will start to consider discharge with follow up in primary care if BP remains below 180 today on oral medications. * Neuro consult-Dustin, to continue ASA, statin, and control BP; appreciate recs 2. Fibroids * CT Abd: Huge multilobulated pelvic mass with dystrophic calcifications evidence for very extensive uterine fibroids. Small density in the right lobe of the liver. * Homeowner Association Manager consulted-German: recommend Oupt f/u with [facility] [place] as soon as BP controlled 3. Elevated Cre: CKD vs DAIN, Stable * Cre: 1.28 > 1.43 > 1.30 > 1.36 > 1.64 > 1.50 > 1.63 >1.57 * Rise most likely 2/2 to LUZ ELENA 4. Hyponatremia, Mild * Na: 131 * Will need outpt f/u and BMP Diet: HHLSo DVT: Lovenox GI Prophylaxis: Pepcid Code Status: Full Dispo: Stable, admitted to inpatient with discharge today now that BP is well controlled. Will need close outpatient f/u upon discharge with PCP and ADVERTISING ASSISTANT MANAGER services. Addendum - Attending - Attending Attestation Date/Time: 04/13/19 3639 I personally evaluated the patient and discussed the management with Dr. Padron. I agree with the History, Examination, Assessment and Plan documented above with any addition or exceptions noted below. Patient admitted for HTN emergency and NSTEMI type 2. She is doing well currently. BP better controlled on current regimen. Renal function continues to improve, likely near her baseline at this time. She is stable for discharge home today.
[2019-04-13] MEDS ORDERED: Spironolactone 25 MG TAB PO SCH (08:00)
[2019-04-13] MEDS: Aspirin 81 mg Enteric Coated Tablet PO SCH (08:35)
[2019-04-13] MEDS: Metoprolol Tartrate 100 MG TAB PO SCH (08:36)
[2019-04-13] MEDS: hydrALAZINE 25 MG TAB PO SCH (08:36)
[2019-04-13] MEDS: NIFEdipine XL 90 MG TAB PO SCH (08:37)
[2019-04-13] MEDS: Oxybutynin 5 MG TAB PO SCH (08:37)
[2019-04-13] MEDS: Famotidine 20 MG TAB PO SCH (08:38)
[2019-04-13] MEDS: Lisinopril 20 MG TAB PO SCH (08:38)
[2019-04-13] MEDS ORDERED: Enoxaparin Sodium 30 MG/0.3 ML SYRINGE SC SCH (09:00)
[2019-04-13 12:39] VITALS: TEMP 98.1
[2019-04-13 14:14] VITALS: BMI 27.3
[2019-04-13 14:20] VITALS: BP 122/74
--- NOTE | 2019-04-14 05:45 | DIS ---
DATE OF ADMISSION: 04/04/2019 DATE OF DISCHARGE: 04/13/2019 RESIDENT: Pablo Padron MD ADMITTING ATTENDING: Elias Alcocer MD DISCHARGE ATTENDING: Adrian Stephens MD CONSULTS: 1. Cardiology, Dr. Almonte and Dr. Denis, 04/05. 2. Neuro, Dr. Chan, 04/09. 3. PT, OT. PROCEDURES PERFORMED: * Stress test performed on 04/10 showed no evidence of ischemia but calculated ejection fraction is 47% with septal hypokinesis. * MRI of abdomen with MRA was performed on 04/07 showed no significant MRI abnormality at the abdomen. * Echo performed on 04/06 showed moderate concentric left ventricular hypertrophy. EF estimated 60% to 65%. Left atrium mildly dilated. Mitral annular calcification. Mild mitral regurg, aortic valve sclerosis, and mild tricuspid regurg. * Brain MRI on 04/05 shows extensive confluent abnormal increased T2 and FLAIR signal suggesting edema involving the deep periventricular and subcortical white matter bilaterally, as well as basal ganglia, thalami, brainstem and cerebellar hemispheres. No associated hemorrhage or acute infarction. * Brain CT on 04/05, shows no significant interval change from previous exam on 04/04. Chest x-ray on 04/04 shows no focal consolidations or alveolar edema. * Brain CT on 04/04 shows no mass or acute hemorrhage. There is evidence of bilateral chronic white matter ischemic changes. * Abdomen and pelvis CT performed on 04/04, shows a 12 x 25 x 23 cm mass in the abdomen that is multilobulated with multiple focal areas and dystrophic calcification. PRIMARY DIAGNOSES: 1. Non ST-elevation myocardial infarction type 2. 2. Hypertensive emergency. SECONDARY DIAGNOSES: 1. Fibroid. 2. Incontinence. DISCHARGE MEDICATIONS: 1. Aspirin 81 daily. 2. Atorvastatin 40 mg at bedtime. 3. Hydralazine 100 mg b.i.d. 4. Lisinopril 20 mg daily. 5. Metoprolol 100 mg b.i.d. 6. Nifedipine or Procardia 90 mg daily. 7. Oxybutynin 5 mg p.o. daily. 8. Spironolactone 12.5 mg q.a.m. DISCONTINUED MEDICATIONS: 1. Tylenol 325 mg p.r.n. 2. Lovenox 30 mg daily. 3. Pepcid 20 mg daily. 4. Hydralazine 10 mg IV p.r.n. for elevated blood pressure. 5. Senokot. HISTORY OF PRESENT ILLNESS: The patient is a 63-year-old female with history of fibroids, who presents with elevated blood pressures, nausea and dizziness for two days. She moved here two weeks ago from [place]. She has been staying with her son yesterday. She started having dizziness and had a fall and hit her head. They checked her blood pressure and it was 203/159, they thought it might be an error , but on 04/04, it was still elevated and she was experiencing dizziness. They rechecked, it was 285/159. Her son and grandson checked it on themselves and found the blood pressure to be normal, so they decided to bring her to the ED. She also has difficulty walking and slurred speech. She has been experiencing some fatigue and nausea and has not been eating well for the past few days. In the ED, she received 20 mg of IV labetalol x2. Blood pressure was initially 230/120. Creatinine was elevated at 1.28. CT of head and abdomen are noted above. The patient was then later on transferred to the ICU on a Cardene drip while adjusting her blood pressure medication. She eventually brought off the drip and moved to the floor. She was on amlodipine 10 daily but that was stopped, as well as hydrochlorothiazide 25 mg b.i.d. Echo as noted above. Stress test as noted above. Renin and aldosterone levels are still pending, as well as 24-hour metanephrine. Creatinine was 1.28 on admission and increased to 1.57. We think this rise is most likely due to initiation of LUZ ELENA inhibitor. She has mild hyponatremia on discharge, which will need to be followed up with outpatient BMP. DISCHARGE INSTRUCTIONS: 1. Location: Home. 2. Diet: Heart healthy, low-sodium. 3. Activity: As tolerated. 4. Followup: * [facility] [place] to see Dr. Porter in 3 to 4 weeks. * Followup with Dr. Almonte in 14 days * Establish care with PCP and see within the next 7 days. Job ID: [id number] MTDD
[2019-04-14 14:10] LABS: Renin Activity 2.241 ng/mL/hr (0.167-5.380)
== END 2019-04-13 14:30 | disposition home or self-care (01) | DRG 280 ==
LOC: ERS 10:17 → 2NO 12:23 → CCU 04-05 10:32 → 2NO 04-08 15:55
PROVIDERS: ADMIT Family Medicine; ATTEND Family Medicine
DX: I16.1 Hypertensive emergency (principal); I63.81 Other cerebral infarction due to occlusion or stenosis of small artery; I21.A1 Myocardial infarction type 2; I67.4 Hypertensive encephalopathy; N17.9 Acute kidney failure, unspecified; E87.1 Hypo-osmolality and hyponatremia; F17.210 Nicotine dependence, cigarettes, uncomplicated; R47.81 Slurred speech; W06.XXXA Fall from bed, initial encounter; I08.3 Combined rheumatic disorders of mitral, aortic and tricuspid valves; E78.00 Pure hypercholesterolemia, unspecified; N18.3 Chronic kidney disease, stage 3 (moderate); I12.9 Hypertensive chronic kidney disease with stage 1 through stage 4 chronic kidney disease, or unspecified chronic kidney disease; E78.5 Hyperlipidemia, unspecified; R32 Unspecified urinary incontinence; D21.9 Benign neoplasm of connective and other soft tissue, unspecified
CPT/HCPCS: 36415; 36416; 70450; 70551; 70553; 71045; 74177; 74185; 78452; 80048; 80053; 80061; 81001; 82088; 82550; 82553; 82570; 83835; 84156; 84244; 84484; 85025; 93005; 93010; 93017; 93306; 96374; 96375; 96376; A9500; A9577; C8902; J0153; J0360; J1650; J7050; Q9966

== ENCOUNTER 2019-12-24 05:54 | Outpatient (CLI) | payer MEDICARE, OTHER ==
[2019-12-24 19:38] LABS: SARS-CoV-2 MS2 Positive; SARS-CoV-2 N Gene Negative; SARS-CoV-2 S Gene Negative; SARS-CoV-2 orf1ab Negative
== END 2019-12-24 05:55 | disposition home or self-care (01) ==
LOC: LABBT 05:54
PROVIDERS: ATTEND Internal Medicine Cardiovascular Disease
DX: Z01.812 Encounter for preprocedural laboratory examination (principal); Z11.59 Encounter for screening for other viral diseases; R94.8 Abnormal results of function studies of other organs and systems
CPT/HCPCS: 87635; U0003

== ENCOUNTER 2019-12-28 13:54 | Inpatient (IN) | payer MEDICARE, OTHER ==
[2019-12-28 14:29] VITALS: BMI 26.6
[2019-12-28 15:11] LABS: #Basophils 0.1 thou/uL (0.0-0.2); #Eosinphils 0.5 thou/uL (0.0-0.7); #Monocytes 0.7 thou/uL (0.11-0.59); #Neutrophils 4.2 thou/uL (1.40-6.50); %Basophils 0.9 % (0.0-1.0); %Eosinophils 5.7 % (0.0-10.0); %Lymphocytes 42.3 % (21.0-51.0); %Monocytes 7.1 % (0.0-10.0); Hemoglobin 12.4 g/dL (12.0-16.0); Mean Corpuscular HGB CONC 33.5 g/dL (32.0-36.0); Mean Corpuscular Volume 95.6 fL (78.0-98.0); Mean Platelet Volume 8.9 fL (7.4-10.4); Platelet Count 175 thou/uL (130-400); RBC Distribution Width 11.8 % (11.5-14.5); Red Blood Cell (RBC) Count 3.86 mill/uL (4.20-5.40); White Blood Cell (WBC) Count 9.5 thou/uL (4.8-10.8)
[2019-12-28 15:51] LABS: ALT (SGPT) 9 U/L (8-55); AST (SGOT) 16 U/L (5-34); Albumin 4.1 g/dL (3.4-4.8); Alkaline Phosphatase 121 U/L (40-110); Anion Gap 13 mmol/L (10-20); BUN (Urea Nitrogen) 28 mg/dL (9.8-20.1); Bilirubin, Total 0.5 mg/dL (0.2-1.2); Calc. Creatinine Clearance 33 mL/min (70-130); Calcium 9.2 mg/dL (7.8-10.44); Carbon Dioxide 26 mmol/L (23-31); Chloride 105 mmol/L (98-107); Estimated GFR-MDRD 35; Globulin 3.2 g/dL (2.4-3.5); Glucose 91 mg/dL (80-115); Potassium 4.4 mmol/L (3.5-5.1); Protein, Total 7.3 g/dL (6.0-8.3); Sodium 140 mmol/L (136-145)
[2019-12-28] MEDS ORDERED: Nitroglycerin 0.4 MG TAB (25 Tab Bottle) SL PRN (18:44)
[2019-12-28] MEDS: Sodium Chloride 0.9% 1,000 ML IV SCH (18:51)
[2019-12-28] MEDS: hydrALAZINE 25 MG TAB PO SCH (21:10)
[2019-12-29] MEDS: Sodium Chloride 0.9% 1,000 ML IV SCH ×2 (05:59→17:38)
[2019-12-29] MEDS: Oxybutynin 5 MG TAB PO SCH (06:00)
[2019-12-29] MEDS: Aspirin Chewable 81 MG TAB PO SCH (06:00)
[2019-12-29] MEDS: hydrALAZINE 25 MG TAB PO SCH (06:02)
[2019-12-29 06:05] LABS: Anion Gap 13 mmol/L (10-20); BUN (Urea Nitrogen) 26 mg/dL (9.8-20.1); Calc. Creatinine Clearance 38 mL/min (70-130); Calcium 9.6 mg/dL (7.8-10.44); Carbon Dioxide 24 mmol/L (23-31); Cardiac Risk 5.5 (Less than 4.5); Chloride 108 mmol/L (98-107); Cholesterol 264 mg/dl (< 200 Desired); Estimated GFR-MDRD 41; Glucose 99 mg/dL (80-115); HDL Cholesterol 48 mg/dL (>60 Neg Risk); LDL Cholesterol, Calculated 183 mg/dL; Potassium 4.1 mmol/L (3.5-5.1); Sodium 141 mmol/L (136-145); Triglycerides 164 mg/dL (Less than 150)
[2019-12-29] MEDS ORDERED: Spironolactone 25 MG TAB PO SCH (08:00)
[2019-12-29] MEDS ORDERED: NIFEdipine XL 30 MG TAB PO SCH ×2 (09:00→10:30)
[2019-12-29] MEDS ORDERED: Heparin 10,000 UNITS/1 ML VIAL ONE (09:01)
[2019-12-29] MEDS ORDERED: Midazolam HCl 2 mg/2 ml Vial ONE (09:44)
[2019-12-29] MEDS ORDERED: Iopamidol 370 76% 50 ML VIAL FS ONE (09:45)
[2019-12-29] MEDS ORDERED: Iopamidol 370 76% 100 ML VIAL ONE (09:45)
[2019-12-29] MEDS ORDERED: Fentanyl 100 MCG/2 ML VIAL ONE (09:45)
[2019-12-29] MEDS ORDERED: Nitroglycerin 100MG/250ML BOT 250 ML ONE (09:58)
[2019-12-29] MEDS ORDERED: Protamine Sulfate 50 MG/5 ML VIAL ONE (10:05)
[2019-12-29] MEDS ORDERED: Acetaminophen/Codeine 30-300mg Tablet PO PRN ×2 (10:24)
[2019-12-29] MEDS ORDERED: Nitroglycerin 0.4 MG TAB (25 Tab Bottle) SL PRN (10:24)
[2019-12-29] MEDS ORDERED: Sodium Chloride 0.9% 200 ML IV PRN (10:24)
[2019-12-29] MEDS ORDERED: Sodium Chloride 0.9% 1,000 ML IV SCH (10:30)
[2019-12-30] MEDS: Sodium Chloride 0.9% 1,000 ML IV SCH (08:25)
[2019-12-30] MEDS: Aspirin Chewable 81 MG TAB PO SCH (08:26)
[2019-12-30] MEDS: Oxybutynin 5 MG TAB PO SCH (08:26)
[2019-12-30] MEDS ORDERED: Lisinopril 20 MG TAB PO SCH (09:00)
[2019-12-30] MEDS ORDERED: NIFEdipine XL 60 MG TAB PO SCH (09:00)
[2019-12-30] MEDS ORDERED: Isosorbide Mononitrate (ER) 30 MG TAB PO SCH (09:00)
[2019-12-30 15:50] VITALS: BP 110/69; TEMP 98.5
--- NOTE | 2019-12-31 14:43 | DIS ---
DATE OF ADMISSION: 12/28/2019 DATE OF DISCHARGE: 12/30/2019 DISCHARGE DIAGNOSES: 1. Right coronary artery spasm. 2. Hypertension. 3. Left ventricular hypertrophy. 4. Hypercholesterolemia with elevated liver function tests while on atorvastatin. 5. Aortic sclerosis. 6. Former smoker, stopped April 2019. 7. Chronic kidney disease. DISCHARGE DISPOSITION: The patient will be seen in 6 weeks with fasting lipid profile and complete metabolic panel. In 4 weeks, she will undergo a chest CT to rule out thoracic aneurysm versus tortuous aorta. DISCHARGE MEDICATIONS: Spironolactone and lisinopril were discontinued due to her renal insufficiency and ultimately a finding of coronary artery spasm. Isosorbide mononitrate 30 mg q.a.m., nifedipine 60 mg q.a.m., metoprolol 50 ER q.a.m., nitroglycerin 0.4 mg sublingually p.r.n., aspirin 81 mg daily, and Ditropan 5 mg daily. She also will be started on Repatha 140 mg q.2 weeks since she appeared to have elevated liver function tests with atorvastatin. HOSPITAL COURSE: Ms. Tineo was admitted the day prior to undergoing cardiac catheterization for an abnormal Cardiolite and chest pain. She was hydrated and underwent cardiac catheterization. This revealed minimal coronary artery disease with 20% proximal and 20% mid RCA lesion. It was of note that she began to have chest discomfort on injection of the left coronary system and there was a [address]-elevation, which developed in leads II and III. It was felt that she had right coronary artery spasm and her calcium channel esther was increased and nitrates were added. Her creatinine the day of cardiac catheterization was 1.75 and the day after was 1.54. Her cholesterol is 264, triglycerides 164, LDL 183, HDL 48. She will be started on Repatha. She was also instructed to use nitroglycerin p.r.n. whenever she has the chest discomfort. At the time of catheterization, it was noted that she probably had a very tortuous thoracic aorta, however, aneurysm could not be ruled out. It was felt best not to do a chest CT today after cardiac catheterization to give her 2 dye loads in 2 days and this will be performed 3 to 4 weeks in the future. Job ID: [id number] [facility]
== END 2019-12-30 19:00 | disposition home or self-care (01) | DRG 282 ==
LOC: 2SE 13:58
PROVIDERS: ADMIT Internal Medicine Cardiovascular Disease; ATTEND Internal Medicine Cardiovascular Disease
PROC: 4A023N7 Measurement of Cardiac Sampling and Pressure, Left Heart, Percutaneous Approach (ICD-10-PCS; principal; 2019-12-28)
PROC: B2111ZZ Fluoroscopy of Multiple Coronary Arteries using Low Osmolar Contrast (ICD-10-PCS; 2019-12-28)
PROC: B2151ZZ Fluoroscopy of Left Heart using Low Osmolar Contrast (ICD-10-PCS; 2019-12-28)
DX: I20.1 Angina pectoris with documented spasm (principal); I21.4 Non-ST elevation (NSTEMI) myocardial infarction; R94.39 Abnormal result of other cardiovascular function study; I51.7 Cardiomegaly; E78.00 Pure hypercholesterolemia, unspecified; I70.0 Atherosclerosis of aorta; I12.9 Hypertensive chronic kidney disease with stage 1 through stage 4 chronic kidney disease, or unspecified chronic kidney disease; D25.9 Leiomyoma of uterus, unspecified; N18.3 Chronic kidney disease, stage 3 (moderate); Z87.891 Personal history of nicotine dependence; Z90.710 Acquired absence of both cervix and uterus
CPT/HCPCS: 36415; 80048; 80053; 80061; 85025; 85347; 93005; 93010; 93458; 99152; C1769; C1887; J1644; J2250; J2720; J3010; Q9967

== ENCOUNTER 2020-02-01 14:07 | Outpatient (CLI) | payer MEDICARE, OTHER ==
[~2020-02-01 14:07] MED LIST: Iopamidol 370 76% 100 ML VIAL ONE
--- NOTE | 2020-02-01 15:11 | CT ---
EXAM: CTA of the chest utilizing IV contrast and Three-D reformatted imaging DATE: 02/01/2020 12:00 AM INDICATION: Tortuous aorta COMPARISON: None. FINDING: No hemodynamically significant stenosis, occlusion or aneurysmal formation seen involving t he visualized thoracic and proximal abdominal aorta. The thoracic aorta is moderately tortuous. Visualized celiac, SMA and renal arteries are widely patent and there is a bovine arch configuration of the aortic arch. The common carotid and subclavian arteries appear patent. There is prominent heterogeneity of the thyroid gland with a large 2.9 cm hypodensity within the right thyroid lobe. No enlarged lymph nodes are evident. No acute airspace opacities noted. Visualized upper abdomen demonstrates a small 5 mm cyst within the right hepatic lobe. Adrenal glands demonstrates a 1.7 cm le ft adrenal nodule. There is diffuse hypertrophy of the left adrenal gland. Right adrenal gland demonstrates a small 1 cm nodule within its medial limb. There is scattered degenerative and osteoart hritic change IMPRESSION: 1. Moderately tortuous thoracic aorta without evidence of significant stenosis, occlusion or aneurysm al formation. 2. Numerous thyroid hypodensities. Recommended thyroid ultrasound for further characterization. The l argest is seen measuring 2.9 cm within the right thyroid lobe inferior pole. 3. Bilateral adrenal nodules. These are incompletely characterized. Further evaluation with a CT abdo men utilizing an adrenal mass protocol is recommended.
== END 2020-02-01 14:08 | disposition home or self-care (01) ==
LOC: BICCT 14:07
PROVIDERS: ATTEND Nurse Practitioner Family
DX: I77.1 Stricture of artery (principal); E27.8 Other specified disorders of adrenal gland; E07.89 Other specified disorders of thyroid
CPT/HCPCS: 71275; Q9967

== ENCOUNTER 2021-01-26 07:27 | Outpatient (CLI) | payer MEDICARE | END 2021-01-26 07:28 | disposition home or self-care (01) | LOC: BICCT 07:27 | PROVIDERS: ATTEND Family Medicine | DX: Z12.2 Encounter for screening for malignant neoplasm of respiratory organs (principal); Z87.891 Personal history of nicotine dependence; R91.1 Solitary pulmonary nodule; E27.8 Other specified disorders of adrenal gland | CPT/HCPCS: 71271 ==

== ENCOUNTER 2021-06-08 07:39 | Outpatient (CLI) | payer MEDICARE | END 2021-06-08 07:40 | disposition home or self-care (01) | LOC: BICULT 07:39 | PROVIDERS: ATTEND Internal Medicine Nephrology | DX: I12.9 Hypertensive chronic kidney disease with stage 1 through stage 4 chronic kidney disease, or unspecified chronic kidney disease (principal); N18.30 Chronic kidney disease, stage 3 unspecified; K76.0 Fatty (change of) liver, not elsewhere classified | CPT/HCPCS: 76770; 93975 ==